=== PATIENT | male | born 1960 | race Caucasian/White ===

== ENCOUNTER → 2019-10-31 12:09 | Outpatient (CLI) | payer BC, SELFPAY ==
--- NOTE | 2019-10-31 12:13 | CA_ITS ---
APPROVED REPORT EXAM: Comprehensive 2D, Doppler, and color-flow Echocardiogram Porcelain Finisher: Joyce Snider RDCS Ht: 6 ft 1 in Wt: 335lbs BSA: 2.68 BP: 133/72 mmHg Indications: Diabetes, Obesity, Hypertension/HDD 2D Dimensions LVOT 2.39 cm (M/F) 1.5-2.5 M-Mode Dimensions RVDd 3.53 cm (0.9-2.6) LVDd 5.05 cm (3.5-5.7) LVDs 3.85 cm (3.5-5.7) IVSd 1.57 cm (0.6-1.1) PWd 0.85 cm (0.6-1.1) EF (Teich) 47.20% FS 23.80% EDV (Teich) 121.00 mL ESV (Teich) 63.90 mL LV Diastology E/A Ratio 1.07 Mitral Valve MV A Velocity 54.00 (40-130 cm/s) Left Ventricle Left atrium is mildly enlarged, left ventricle is normal size, mild concentric left ventricular hypertrophy, visually estimated ejection fraction 55% with no regional wall motion abnormality, grade 1 diastolic dysfunction seen without tissue Doppler evidence of raise left atrial pressure. Right Ventricle Right atrium and right ventricle are mildly enlarged with normal contractility. Aortic Valve Aortic valve is minimally thickened and fibrosed, there is no aortic stenosis or aortic insufficiency. Mitral Valve Mitral valve is grossly normal, there is mild mitral regurgitation. Tricuspid Valve Tricuspid valve is grossly normal, there is mild tricuspid regurgitation, tricuspid regurgitation jet velocity is inadequate for calculation of the right ventricular systolic pressure. Pulmonic Valve Pulmonic valve is poorly visualized. Great Vessels Aortic root is normal size. Pericardium No significant pericardial effusion noted. Conclusion 1. Mild biatrial enlargement, normal left ventricular size, mild concentric left ventricular hypertrophy, visually estimated ejection fraction 55% with no regional wall motion abnormality, grade 1 diastolic dysfunction seen without tissue Doppler evidence of raise left atrial pressure. 2. Mildly enlarged right ventricle with normal contractility. 3. Mild mitral and tricuspid regurgitation. 4. No significant pericardial effusion noted Electronically signed by : Richi Orlando, 10/31/2019 18:19:23
--- NOTE | 2019-10-31 12:32 | XR_ITS ---
PROCEDURE: XR CHEST 2V CLINICAL HISTORY: dyspnea COMPARISON: No exams were available for comparison FINDINGS: The cardiomediastinal silhouette and pulmonary vascularity are within normal limits. There are well expanded. There are subtle interstitial reticular nodular opacities in the perihilar regions and lower lobes bilaterally. There is no definite confluent pneumonic infiltrate. There is no pleural fluid. The bony thorax is normal. IMPRESSION: Minimal or early interstitial fibrotic changes primarily involving the lower lobes, doubt acute chest pathology Dictated Dr. Dave Huerta MD 10/31/2019 12:52 Dr. Dave Quiroz MD in [place] 10/31/2019 12:52
== END ==
PROVIDERS: PCP Family Medicine; Visit Provider Internal Medicine
DX: E11.9 Type 2 diabetes mellitus without complications (principal); R06.02 Shortness of breath; R60.0 Localized edema; E66.01 Morbid (severe) obesity due to excess calories; F17.200 Nicotine dependence, unspecified, uncomplicated; G47.33 Obstructive sleep apnea (adult) (pediatric); I10 Essential (primary) hypertension; I25.10 Atherosclerotic heart disease of native coronary artery without angina pectoris; N52.9 Male erectile dysfunction, unspecified; Z99.89 Dependence on other enabling machines and devices; Z79.84 Long term (current) use of oral hypoglycemic drugs
CPT/HCPCS: 71046; 93306

== ENCOUNTER 2023-04-14 11:58 | Outpatient (CLI) | payer MEDICARE, SELFPAY ==
[2023-04-14 12:42] LABS: Basophils % 0.9 % (0.1-2.0); Eosinophils # 0.2 K/mm3 (0.0-0.4); Eosinophils % 4.1 % (0.1-12.0); Hematocrit 44.2 % (42.0-52.0); Hemoglobin 14.8 g/dL (14.1-18.0); Lymphocytes # 1.2 K/mm3 (0.7-4.5); Lymphocytes % 27.1 % (10-50); Mean Corpuscular HGB Conc 33.6 g/dL (31.8-35.4); Mean Corpuscular Hemoglobin 34.8 pg (27.0-31.2); Mean Corpuscular Volume 103.5 fl (80-94); Mean Platelet Volume 8.4 fl (7.4-10.4); Monocytes # 0.3 K/mm3 (0.1-1.0); Monocytes % 5.9 % (1.7-9.3); Neutrophils # 2.8 K/mm3 (1.8-7.8); Neutrophils % 61.9 % (37.0-80.0); Platelet Count 65 K/mm3 (142-424); Red Blood Count 4.27 M/mm3 (4.60-6.20); Red Cell Distribution Width 14.4 % (11.5-17.5); White Blood Count 4.5 K/mm3 (4.8-10.8)
[2023-04-14 12:58] LABS: Chloride 106 mmol/L (98-107); Potassium 3.9 mmoL/L (3.5-5.1); Sodium 137 mmol/L (136-145)
[2023-04-14 13:00] LABS: Bilirubin,Unconjugated 0.5 mg/dL (0.0-1.1); Blood Urea Nitrogen 13 mg/dl (9-20); Estimated Glomerular Filt Rate 86 ml/min (>60); GFR (African American) 104 ML/MIN (>60)
[2023-04-14 13:01] LABS: Alanine Aminotransferase 31 U/L (12-78); Albumin Level 3.4 g/dl (3.5-5.0); Alkaline Phosphatase 111 U/L (38-126); Anion Gap 5.9 mEq/L (5-15); Aspartate Amino Transferase 49 U/L (17-59); Bilirubin,Direct 0.6 mg/dl (0.0-0.4); Bilirubin,Indirect 0.5 mg/dL (0.0-0.9); Bilirubin,Total 1.1 mg/dl (0.2-1.3); Calcium 8.5 mg/dl (8.4-10.2); Carbon Dioxide 29 mmol/L (22.0-30.0); Cholesterol 199 mg/dl (140-200); Glucose 127 mg/dl (74-100); Magnesium 1.8 mg/dl (1.6-2.3); Total Protein,Serum 7.1 g/dl (6.3-8.2); Triglycerides 168 mg/dl (30-150); VLDL Cholesterol 34 mg/dL (0-40)
[2023-04-14 13:02] LABS: Chol/HDL Ratio 4.1 (1-3.5); HDL Cholesterol 49 mg/dl (40-60)
[2023-04-14 13:13] LABS: Direct LDL Cholesterol 103.86 mg/dL (100-129)
[2023-04-14 13:18] LABS: Free T4 (Free Thyroxine) 1.22 ng/dl (0.78-2.19)
[2023-04-14 13:31] LABS: Thyroid Stimulating Hormone 1.53 uIU/mL (0.465-4.68)
== END 2023-04-14 23:59 ==
LOC: RT 11:59
PROVIDERS: Visit Provider Internal Medicine
DX: E11.9 Type 2 diabetes mellitus without complications (principal); E66.01 Morbid (severe) obesity due to excess calories; E78.5 Hyperlipidemia, unspecified; F17.200 Nicotine dependence, unspecified, uncomplicated; I10 Essential (primary) hypertension; I25.10 Atherosclerotic heart disease of native coronary artery without angina pectoris; I63.9 Cerebral infarction, unspecified; R60.9 Edema, unspecified; Z68.41 Body mass index [BMI] 40.0-44.9, adult; Z79.84 Long term (current) use of oral hypoglycemic drugs; R06.09 Other forms of dyspnea; R94.31 Abnormal electrocardiogram [ECG] [EKG]
CPT/HCPCS: 36415; 80048; 80061; 80076; 83735; 84439; 84443; 85025; 93270

== ENCOUNTER 2023-04-16 09:25 | Outpatient (CLI) | payer MEDICARE, SELFPAY ==
--- NOTE | 2023-04-16 09:26 | CA_ITS ---
FINAL REPORT TECHNIQUE: Color Doppler, duplex Doppler and lutz scale sonography of the bilateral neck arterial vasculature was performed. Velocities were measured in the carotid arteries. Stenosis evaluation based on the validated velocity criteria. CLINICAL HISTORY: cryptogenic stroke, visual disturbance COMPARISON: None FINDINGS: The peak systolic velocity of the right common carotid artery is 78 cm/s. The peak systolic velocity of the right internal carotid artery is 112 cm/s and end diastolic velocity 36 cm/s. The ICA/CCA ratio is 1.8. A mild to moderate amount of plaque is present. The right external carotid artery is patent. The right vertebral artery is patent with antegrade flow. The peak systolic velocity of the left common carotid artery is 81 cm/s. The peak systolic velocity of the left internal carotid artery is 94 cm/s and end diastolic velocity 28 cm/s. The ICA/CCA ratio is 1.4. A mild to moderate amount of plaque is present. The left external carotid artery is patent.The left vertebral artery is patent with antegrade flow. IMPRESSION: Less than 50% bilateral carotid stenoses. Bilateral patent vertebral arteries with antegrade flow. If indicated, CTA or MRA could further evaluate. Reviewed, Interpreted and Dictated by Edgar Vazquez MD Transcribed by Tamara Reed Authenticated and . [facility]
--- NOTE | 2023-04-16 09:26 | CA_ITS ---
APPROVED REPORT EXAM: Comprehensive 2D, Doppler, and color-flow Echocardiogram Design Specialist: SENAIT Ambrose, RVS Ht: 6 ft 1 in Wt: 335lbs BSA: 2.68 BP: 147/68 mmHg Indications: cad,cvs,htn, hld, edema, sob, smoker, DM Echo Enhancing Agent Comments: TDS: LIMITED WINDOWS DUE TO PATIENT FACTORS 2D Dimensions Left Atrium 4.35 cm M: 3.0 - 4.0 LA Volume 92.50 mL LA Volume Index 34.426002 mL/m2 (M/F) 16-34 M-Mode Dimensions RVDd 3.30 cm (0.9-2.6) LA Diam 4.75 cm (1.9-4.0) LVDd 5.40 cm (3.5-5.7) LVDs 3.44 cm (3.5-5.7) IVSd 1.20 cm (0.6-1.1) PWd 1.16 cm (0.6-1.1) EF (Teich) 65.50% EPSs 0.72 cm FS 36.30% EDV (Teich) 141.30 mL TAPSE 3.75 (<1.7) ESV (Teich) 48.80 mL LV Diastology E Decel Time 287 (160-240 msec) E/A Ratio 0.94 MED A' 9.40 cm/s LAT A' 11.60 cm/s Aortic Valve TAITANA Index 1.12 cm2/m2 AoV Peak Perez. 122.0 (50-130 cm/s) AO Peak GR. 6.00 mmHg AO Mean GR. 3.00 (<5 mmHg) AO VTI 24.4 (18-25 cm) TATIANA (VTI) 3.07 (2.5-4.5 cm2) Mitral Valve MV A Velocity 74.0 (40-130 cm/s) E/A Ratio 0.94 Tricuspid Valve TR P. Velocity 150.00 cm/s RAP Estimate 10.00 mmHg RVSP 19.00 mmHg Left Ventricle The left ventricle is normal size. The left ventricular systolic function is normal. The left ventricular ejection fraction is within the normal range. There is normal left ventricular wall thickness. There is normal LV segmental wall motion. The left ventricular diastolic function is normal. LVEF is 55%. Right Ventricle The right ventricle is normal size. The right ventricular systolic function is normal. Atria The left atrium size is normal. The right atrium size is normal. The interatrial septum is not well visualized. Aortic Valve The aortic valve opens well. There is no aortic valvular stenosis. No aortic regurgitation is present. Mitral Valve The mitral valve is normal in structure. No evidence of mitral valve stenosis. Trace mitral valve regurgitation noted. Tricuspid Valve The tricuspid valve leaflets are thin and pliable. Trace tricuspid regurgitation. There is insufficient TR jet to estimate RVSP. Pulmonic Valve The pulmonary valve is normal in structure. Trace pulmonic regurgitation. Great Vessels The aortic root is normal in size. The ascending aorta is not well visualized. The IVC is not well visualized. Pericardium There is no pericardial effusion. Other Information Study Quality: Technically Difficult Conclusion Technically difficult study due to poor accoustic windows. Normal biventricular systolic function. No significant valvular stenosis or regurgitation. Electronically signed by : Deborah Ramos MD 04/20/2023 17:37:40
== END 2023-04-16 23:59 ==
PROVIDERS: Visit Provider Internal Medicine
DX: E11.9 Type 2 diabetes mellitus without complications (principal); E66.01 Morbid (severe) obesity due to excess calories; E78.5 Hyperlipidemia, unspecified; F17.200 Nicotine dependence, unspecified, uncomplicated; I10 Essential (primary) hypertension; I25.10 Atherosclerotic heart disease of native coronary artery without angina pectoris; R60.9 Edema, unspecified; I63.89 Other cerebral infarction; Z79.84 Long term (current) use of oral hypoglycemic drugs; Z68.41 Body mass index [BMI] 40.0-44.9, adult
CPT/HCPCS: 93306; 93880

== ENCOUNTER 2023-05-03 12:16 | Outpatient (CLI) | payer MEDICARE, SELFPAY ==
[2023-05-03 14:21] LABS: Vitamin B12 437 pg/mL (239-931)
[2023-05-03 14:37] LABS: Folate 6.84 ng/mL
== END 2023-05-03 23:59 ==
LOC: LAB 12:18
PROVIDERS: PCP Family Medicine; Visit Provider Internal Medicine
DX: D64.9 Anemia, unspecified (principal)
CPT/HCPCS: 36415; 82607; 82746

== ENCOUNTER 2023-06-15 10:26 | Outpatient (CLI) | payer MEDICARE, SELFPAY ==
[2023-06-15 10:30] VITALS: BP 117/50; PULSE 72; RESP 16; TEMP 35.9
[2023-06-15] MEDS: INCLISIRAN SODIUM 284 MG/1.5 ML SYRINGE SQ (10:40)
== END 2023-06-15 10:55 | disposition home or self-care (01) ==
PROVIDERS: PCP Family Medicine; Visit Provider Internal Medicine
DX: E78.5 Hyperlipidemia, unspecified (principal)
CPT/HCPCS: 96372; J1306

== ENCOUNTER 2023-10-15 09:53 | Outpatient (CLI) | payer MEDICARE, SELFPAY ==
[2023-10-15 10:05] VITALS: BP 123/67; PULSE 72; RESP 18; TEMP 36.8; O2SAT 96
[2023-10-15] MEDS: INCLISIRAN SODIUM 284 MG/1.5 ML SYRINGE SQ (10:05)
== END 2023-10-15 10:27 | disposition home or self-care (01) ==
LOC: INF 09:54
PROVIDERS: PCP Nurse Practitioner Family; Visit Provider Internal Medicine
DX: E78.5 Hyperlipidemia, unspecified (principal)
CPT/HCPCS: 96372; J1306

== ENCOUNTER 2024-04-24 12:28 | Outpatient (CLI) | payer MEDICARE, SELFPAY ==
--- NOTE | 2024-04-24 12:33 | XR_ITS ---
FINAL REPORT TECHNIQUE: Chest PA & Lateral CLINICAL HISTORY: Shortness of breath/atypical angina COMPARISON: None FINDINGS: 2 views of the chest were performed. The heart size is normal. The mediastinum is within normal limits. There is no acute cardiopulmonary process. Mild chronic changes are seen in both lungs. There are no pleural effusions. There is no pneumothorax. The bony thorax appears intact. IMPRESSION: Mild chronic changes without acute cardiopulmonary process. Reviewed, Interpreted and Dictated by Edgar Vazquez MD Transcribed by Tamara Reed Authenticated and . [facility]
[2024-04-24 12:58] LABS: Basophils # 0.1 K/mm3 (0-0.2); Basophils % 1.2 % (0.1-2.0); Eosinophils # 0.3 K/mm3 (0.0-0.4); Eosinophils % 2.8 % (0.1-12.0); Hematocrit 42.3 % (42.0-52.0); Lymphocytes % 20.9 % (10-50); Mean Corpuscular HGB Conc 35.5 g/dL (31.8-35.4); Mean Corpuscular Hemoglobin 35.3 pg (27.0-31.2); Mean Corpuscular Volume 99.5 fl (80-94); Monocytes % 10.4 % (1.7-9.3); Neutrophils # 6.1 K/mm3 (1.8-7.8); Neutrophils % 64.3 % (37.0-80.0); Platelet Count 103 K/mm3 (142-424); Red Blood Count 4.25 M/mm3 (4.60-6.20); Red Cell Distribution Width 13.4 % (11.5-17.5); White Blood Count 9.5 K/mm3 (4.8-10.8)
[2024-04-24 13:32] LABS: ABG HCO3 26.6 mmhg (22.0-26.0); ABG Oxygen Saturation 89 % (90-100); ABG PCO2 37.5 mmhg (35.0-45.0); ABG PH 7.46 mmol/L (7.35-7.45); ABG PO2 51.2 mmhg (80-100); ABG TCO2 27.8 mmhg (23-27)
[2024-04-24 13:33] LABS: Allen's Test Acceptable; Oxygen 21% %; Source Left Radial
[2024-04-24 13:41] LABS: Free T4 (Free Thyroxine) 1.66 ng/dl (0.78-2.19)
[2024-04-24 13:43] LABS: Alanine Aminotransferase 33 U/L (12-78); Albumin Level 3.8 g/dl (3.5-5.0); Alkaline Phosphatase 104 U/L (38-126); Anion Gap 13.8 mEq/L (5-15); Aspartate Amino Transferase 53 U/L (17-59); Bilirubin,Direct 0.4 mg/dl (0.0-0.4); Bilirubin,Indirect 0.9 mg/dL (0.0-0.9); Bilirubin,Total 1.3 mg/dl (0.2-1.3); Bilirubin,Unconjugated 0.9 mg/dL (0.0-1.1); Blood Urea Nitrogen 32 mg/dl (9-20); Calcium 9.4 mg/dl (8.4-10.2); Carbon Dioxide 28 mmol/L (22.0-30.0); Chloride 98 mmol/L (98-107); Chol/HDL Ratio 3.8 (1-3.5); Cholesterol 165 mg/dl (140-200); Estimated Glomerular Filt Rate 41 ml/min (>60); GFR (African American) 50 ML/MIN (>60); Glucose 140 mg/dl (74-100); HDL Cholesterol 43 mg/dl (40-60); Magnesium 1.4 mg/dl (1.6-2.3); Potassium 3.8 mmoL/L (3.5-5.1); Sodium 136 mmol/L (136-145); Total Protein,Serum 7.1 g/dl (6.3-8.2); Triglycerides 292 mg/dl (30-150); VLDL Cholesterol 58 mg/dL (0-40)
[2024-04-24 13:52] LABS: NT Pro Brain Natriuretic Pep. 591 pg/mL (0-125)
[2024-04-24 13:53] LABS: Direct LDL Cholesterol 75.68 mg/dL (100-129)
[2024-04-24 14:13] LABS: Thyroid Stimulating Hormone 3.02 uIU/mL (0.465-4.68)
== END 2024-04-24 23:59 | disposition home or self-care (01) ==
PROVIDERS: PCP Nurse Practitioner Family; Visit Provider Internal Medicine
DX: R06.00 Dyspnea, unspecified (principal); E78.49 Other hyperlipidemia; I63.9 Cerebral infarction, unspecified; E66.01 Morbid (severe) obesity due to excess calories; E11.9 Type 2 diabetes mellitus without complications; Z79.4 Long term (current) use of insulin; F17.200 Nicotine dependence, unspecified, uncomplicated; I25.10 Atherosclerotic heart disease of native coronary artery without angina pectoris; R60.0 Localized edema; R06.83 Snoring; G47.33 Obstructive sleep apnea (adult) (pediatric); I10 Essential (primary) hypertension; I27.21 Secondary pulmonary arterial hypertension
CPT/HCPCS: 36415; 71046; 80048; 80061; 80076; 82803; 83735; 83880; 84439; 84443; 85025

== ENCOUNTER 2024-05-01 11:37 | Outpatient (CLI) | payer MEDICARE, SELFPAY ==
[2024-05-01 12:22] LABS: Chloride 104 mmol/L (98-107)
[2024-05-01 12:23] LABS: Potassium 4.2 mmoL/L (3.5-5.1); Sodium 138 mmol/L (136-145)
[2024-05-01 12:26] LABS: Anion Gap 9.2 mEq/L (5-15); Blood Urea Nitrogen 18 mg/dl (9-20); Calcium 8.7 mg/dl (8.4-10.2); Carbon Dioxide 29 mmol/L (22.0-30.0); Estimated Glomerular Filt Rate 76 ml/min (>60); GFR (African American) 92 ML/MIN (>60); Glucose 229 mg/dl (74-100)
== END 2024-05-01 23:59 | disposition home or self-care (01) ==
LOC: LAB 11:38
PROVIDERS: PCP Nurse Practitioner Family; Visit Provider Nurse Practitioner Family
DX: J44.9 Chronic obstructive pulmonary disease, unspecified (principal); I27.21 Secondary pulmonary arterial hypertension; G47.33 Obstructive sleep apnea (adult) (pediatric); E78.49 Other hyperlipidemia; E11.9 Type 2 diabetes mellitus without complications; Z79.4 Long term (current) use of insulin; F17.200 Nicotine dependence, unspecified, uncomplicated; I25.10 Atherosclerotic heart disease of native coronary artery without angina pectoris
CPT/HCPCS: 36415; 80048

== ENCOUNTER → 2024-05-17 07:33 | Outpatient (CLI) | payer MEDICARE, SELFPAY | LOC: SL 07:34 | PROVIDERS: PCP Internal Medicine; Visit Provider Internal Medicine | DX: G47.33 Obstructive sleep apnea (adult) (pediatric) (principal); R06.83 Snoring; R06.00 Dyspnea, unspecified; E78.49 Other hyperlipidemia; I63.9 Cerebral infarction, unspecified; E66.01 Morbid (severe) obesity due to excess calories; E11.9 Type 2 diabetes mellitus without complications; Z79.4 Long term (current) use of insulin; F17.200 Nicotine dependence, unspecified, uncomplicated; I25.10 Atherosclerotic heart disease of native coronary artery without angina pectoris; R60.0 Localized edema | CPT/HCPCS: G0399 ==

== ENCOUNTER 2024-08-15 14:16 | Outpatient (CLI) | payer MEDICARE, SELFPAY ==
--- OUTSIDE RECORDS SUMMARY | 2024-08-15 14:19 | XMS_ITS | Data Portability ---
Author Organization [facility] & [place], [facility] and [facility] Ag[facility] Address [facility] [place] [address] Assessment No assessment recorded. Plan of Treatment Reminders Order Date Submit Date Provider Last Modified By Organization Details Last Modified Time Details Appointments None record ed. Lab None record ed. Referral None record ed. Procedures None record ed. Surgeries None record ed. Imaging None record ed. Medication Orders None record ed. Patient TargetsNo targets recorded. Patient InstructionsNo instructions recorded. Reason for Referral None Reported. Problems Name Problem SNOMED Code Status Onset Date Resolution Date Notes Provider Name and Address Organization Details Recorded Time Secondary thrombocytopen ia 175745966 Active 2021 Hugh Melo MD [address] [place] [address],[address] [place] [address], [phone], [place] - [facility] - [place] & [place] 2 10:27:54 Macrocytosis - no anemia 052362004 Active 2021 Hugh Melo MD [address] [place] [address],[address], [place], [phone], [place] [facility] - [place] & [place] 2 10:28:06 Cirrhosis of liver 75344721 Active 2021 Hugh Melo MD [address] [place] [address],[address], [place], [phone], [place] - [place] & [place] 2 10:28:13 Splenomegaly 81732561 Active 2021 Hugh Melo MD [address] [place] [address],[address], [place], [phone], [place] - [facility] - [place] & [place] 2 10:28:21 Problem Notes None recorded. Procedures Surgical History Date Name Laterality Status Provider Name and Address Organization Details Recorded Time cholecystectomy completed Lisa PORTER [facility] & [place] 01/09/2022 10:18:39 total replacement of right hip joint completed Lisa NICHOLAS [facility] & [place] 01/09/2022 10:19:10 Imaging Results None recorded. Procedure Notes None recorded. Medical Equipment None Reported. Allergies Allergen ID Allergen Name Allergen Category Reaction Reaction Severity Criticality Documentation Date Start Date Code Code System Note Provider Name and Address Organization Details Recorded Time 77843 codeine medicatio n Not available Not available Not available 01/09/2022 2670 RxNorm Lisa lam, [place] [facility] & [place] 10:17:37 Medications Name Sig Start Date Stop Date Status Note LastModified by Organization Details LastModified Time fluticasone 250 mcg-salmeter ol 50 mcg/dose blistr powdr for inhalation active Not Available Not Available N ot Available carvedilol 25 mg tablet 1 tablet PO daily active Not Available Not Available No t Available torsemide 20 mg tablet 1 tablet PO daily active Not Available Not Available No t Available fluconazole 150 mg tablet 01/09 completed Not Available Not Available Not Available valsartan 80 mg tablet 1 tablet PO daily active Not Available Not Available No t Available spironolacto ne 25 mg tablet active Not Available Not Available Not Available tamsulosin 0.4 mg capsule 1 tablet PO daily active Not Available Not Available No t Available gabapentin 800 mg tablet 1 tablet PO 4 times daily active Not Available Not Available No t Available metformin 1,000 mg tablet 1 tablet PO BID active Not Available Not Available No t Available omeprazole 20 mg capsule,delmy yed release 01/09 completed Not Available Not Available Not Available hydrochlorot hiazide 25 mg tablet 1 tablet PO daily active Not Available Not Available No t Available lorazepam 1 mg tablet 1 tablet PO daily active Not Available Not Available No t Available albuterol sulfate HFA 90 mcg/actuatio n aerosol inhaler active Not Available Not Available Not Available spironolacto ne 50 mg tablet active Not Available Not Available Not Available Vitamin D 2,000 unit capsule Take 1 capsule every day by oral route. active Not Available Not Available No t Available potassium chloride ER 20 mEq tablet,exten ded release 1 tablet PO daily PRN active Not Available Not Available No t Available aspirin 81 mg capsule Take 1 capsule every day by oral route. active Not Available Not Available No t Available Vitals Date Recorded Body height Body mass index (BMI) Body weight Body temperature Oxygen saturation Oxygen saturation in Arterial blood by Pulse oximetry Heart rate Respiratory rate Systolic And Diastolic Provider Name and Address Organization Details Last Updated DateTime 2 182.88 cm 44.9 kg/m2 737012. 51 g 97.9 [degF] 94 % 94 % 74 /min 18 /min 126/58 mm[Hg] Lisa PORTER [facility] & [place] 10:17:02 Social History Question Answer Notes LastModified by Organizat ion Details LastModified Time Tobacco Smoking Status Current Every Day Smoker Lisa Martinez genaro, [facility] & [place] 01/09/2022 10:19:28 How Much Tobacco Do You Smoke? 2 PPD kcornette Information not available 01/09/2022 Sex: Unknown Functional Status None recorded. Mental Status None recorded. Family History Relationship Description Onset Age of this Age Resolved Age Notes LastModified by Organization Details LastModified Time Mother Primary malignant neoplasm of colon kcornette Not available 2021 10:18:00 Brother Heart valve replacement [email or web address] Not available 12/21 10:18:15 Medical History No medical history recorded. Past Encounters Encounter ID Performer Location Encounter Start Date Encounter Closed Date Diagnosis/Indication Diagnosis SNOMED-CT Code Diagnosis ICD10 Code Diagnosis Note [id number] MD [facility] [address] [place] [address] 01/09/2022 09:43:05 01/09/2022 10:43:57 Secondary thrombocytopenia 078201930 D69.59 Most likely secondary to the patient's known history of cirrhosis and splenomega ly. Review of recent blood work from 12/16/2021 shows no significan t change compared to blood work from 08/17/2019 . Therefore has essentiall y shown stable cytopenias over the last 2 years. Discussed with the patient that I found this to be reassuring . Suggests that he has not had further progressio n of his liver disease over that period of time. Also helps to confirm that it is unlikely he has any additional underlying hematologi c abnormalit ies that could be contributi ng to the cytopenias as it would have been suspected that these would have progressed over a 2 year period. Given the overall stability and lack of symptoms patient recommende d for follow-up with me as needed. Recommend continued surveillan ce of his blood counts with his PCP on at least an annual basis. If noted to have progressiv e change in the future I would be happy to follow back up with the patient. Thank you for allowing me to participat e in the care of Mr. Shultz. Should you have any further questions or concerns please feel free to give me a call at . I personally spent 25 minutes in patient care on this date reviewing records, obtaining interim history, performing a physical exam, counseling the patient, and documentin g the clinical informatio n in the electronic health record. Macrocytos is - no anemia [id number] D75.89 I suspect this is related to his history of cirrhosis. No significan t changes noted over the last 2 years. Cirrhosis of liver K74.60 Splenomegaly 26139978 R1 6.1 Health Concerns Section Related Observation LastModified by Organization Detai ls LastModified Time None Recorded Concern Status LastModified by Organization Details LastModified Time None Recorded Advance Directives Directive None Recorded Payers Insurance Date Sequence Insurance Name Policy Number Policy Wild Covered Member ID Wild Member ID Guarantor Name 10/09/2023 1 [place]/ ADVANTAGE - HMO) [id number] Uday Shultz [id number] Uday Shultz 08/28/2019 1 [place] [facility] Uday Shultz [id number] Uday Shultz 01/09/2022 1 [place] [id number] Uday Shultz [id number] Uday Shultz 08/28/2019 2 [place] Uday Shultz [id number] Uday Shultz 08/28/2019 2 [place] Uday Shultz [id number] Uday Shultz Notes Date Note Type Note Provider Name and Address Organization Details Recorded Time 01/09/2022 text/html CC: Dr. Theresa Jamil had the pleasure of seeing Mr. Uday Shultz at the [facility] on 01/09/2022.Mr. Shultz is a 59 y/o man referred to me for evaluation of macrocytosis and thrombocytopenia. He was previously evaluated for the same back in 2019. The patient is known to have a diagnosis of cirrhosis with moderate splenomegaly. This was diagnosed in 2016 during a cholecystectomy. His cirrhosis is felt to be secondary to REYNOLDS. He reports that he does not drink alcohol at all. Review of prior imaging shows that he had an abdominal CT on 02/07/2016 that showed splenomegaly measuring up to 20 cm. He also had an liver ultrasound on 10/12/2016 which confirmed evidence of cirrhosis. Review of CBC from 08/17/2019 shows hemoglobin 15.1 with an MCV 100. WBC was normal. Platelet count was 87. Differential was benign. CMP showed a slightly elevated AST of 44 but was otherwise unremarkable. Folate and B12 levels were reportedly normal. more recently CBC on 12/16/2021 showed hemoglobin 14.6 with an MCV of 101. Platelet count was 85. White blood cell count remained normal. Differential remained unremarkable. The patient now returns for follow-up. Hugh Melo MD [address] [facility],[address], [place], [address], [place] - [place] - [place] & [place] 01/09/2022 13:51:58
--- NOTE | 2024-08-15 14:30 | CT_ITS ---
FINAL REPORT TECHNIQUE: Axial CT images of the chest were obtained without contrast. Low-dose protocol was utilized. This study was performed with techniques to keep radiation doses as low as reasonably achievable (ALARA). Individualized dose reduction techniques using automated exposure control or adjustment of mA and/or kV according to the patient's size were employed. CLINICAL HISTORY: Lung cancer screening Current smoker 1.5 ppd x 50 years COMPARISON: None FINDINGS: CT CHEST WITHOUT, LOW DOSE SCREENING CTDl vol(mGy): 2.90 DLP (mGy-cm): 108.12 There is no axillary adenopathy. There is no hilar adenopathy. There is no mediastinal mass or adenopathy. The heart size is normal. There are mild coronary artery calcifications. There is no pericardial or pleural effusion. Lung window images demonstrate a subtle density along the margin of the minor fissure. This may be related to a small fissural lymph node and is best seen on coronal image 39 of series 6001. Limited images of the upper abdomen are unremarkable. IMPRESSION: Lung RADS category 2. Recommend 12 month follow-up low-dose chest CT per Fleischner criteria. Reviewed, Interpreted and Dictated by Edgar Vazquez MD Transcribed by Devorah Estrada Authenticated and [facility]
[2024-08-15 15:30] VITALS: PULSE 55; PULSE 60
[2024-08-15] MEDS: ALBUTEROL 0.083% 2.5 MG/3 ML NEB IH (15:30)
--- NOTE | 2024-08-15 15:50 | PC.NURSE ---
Pt refused 6MWT stated he has neuropathy in his feet and would not be able do the test.
== END 2024-08-15 23:59 | disposition home or self-care (01) ==
LOC: RAD 14:17
PROVIDERS: PCP Nurse Practitioner Family; Visit Provider Internal Medicine Pulmonary Disease
DX: R91.8 Other nonspecific abnormal finding of lung field (principal); J44.9 Chronic obstructive pulmonary disease, unspecified; F17.210 Nicotine dependence, cigarettes, uncomplicated; Z12.2 Encounter for screening for malignant neoplasm of respiratory organs
CPT/HCPCS: 71271; 94060; 94640; 94726; 94729

== ENCOUNTER 2025-01-04 12:20 | Observation (INO) | payer MEDICARE, SELFPAY ==
[2025-01-04] VITALS (17 sets, daily range): BP systolic 93–127; BP diastolic 45–70; PULSE 50–77; RESP 15–20; TEMP 36.6–37.1; O2SAT 92–95; BMI 45.0
--- NOTE | 2025-01-04 12:50 | IR_ITS ---
APPROVED REPORT Patient Location: Inpatient Marine Driller: NAEL Rosa RT (R) PROCEDURES Left heart catheterization Left ventriculogram Selective coronary angiogram INDICATION Unstable angina, New onset congestive heart failure Informed consent was obtained prior to the procedure. COMPLICATIONS None Estimated Blood Loss: Less than 10 mls TECHNIQUE One percent lidocaine used to anesthetize the right anterior aspect of the wrist. The right radial artery was accessed via the Seldinger technique. A 6 Occitan sheath was placed in the right radial artery. 2.5 mg of Verapamil, 800 mcg of nitroglycerin, 1mg Lidocaine and 5000 U Heparin were given through the arterial sheath. The JL3 catheter was also used to perform left heart catheterization, left ventriculogram and selective coronary angiogram. At the end of the procedure the sheath was removed good hemostasis was achieved using Traclet band, patient was transferred to the postop holding area in stable condition. ANGIOGRAPHIC RESULTS The left main artery Has an ostial and distal 30 to 40% stenosis The left anterior descending artery Has diffuse proximal and mid vessel 40% stenoses which involved with diagonal artery The circumflex artery Is nondominant but gives rise to a large first obtuse marginal artery which has a proximal 50% stenosis. 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 GDMT for systolic heart failure 2. Patient is an extremely heavy smoker I would like for Dr. Mix to see the patient during this admission for COPD 3. Increase diuretics 4. Patient will be referred to electrophysiology for consideration of PVC ablation 5. Patient will need cardiac MRI prior to EP referral 6. Patient needs to be evaluated for Cordella candidacy Electronically signed by : Gus Jorge MD 01/04/2025 15:25:22
--- NOTE | 2025-01-04 13:34 | EXP.CARD.PN ---
Subjective Subjective Date: 01/04/25 Time: 13:34 Principal diagnosis: unstable angina Interval history: Pt having CP and pressure. Pt c/o shortness of breath, this has gotten worse, he is sleeping in a recliner now he cannot sleep laying flat. Worsening symptoms of HFpEF. He is diabetic and this could be angina equivalent as well. Pt c/o dizziness/lightheadedness Pt c/o swelling in legs, feet, ankles Pt denies numbness/tingling Pt c/o fatigue Exam Data for Last 24 hours I & O for Last 24 hours: Intake & Output 01/01/25 01/02/25 01/03/25 01/04/25 23:59 23:59 23:59 23:59 Weight 332 lb 2 oz Constitutional Constitutional: no acute distress and average body habitus *Routine HEENT Exam Head: Present normocephalic and atraumatic ENT: Present mucous membranes moist *Routine Neck Exam Neck: Present supple, full ROM and normal carotid upstroke; Absent JVD, carotid bruit or lymphadenopathy *Routine Respiratory Exam Respiratory: Present CTA bilaterally, normal respiratory effort, able to speak in complete sentences and symmetric chest movement *Routine Cardiovascular Exam Cardiovascular: Present RRR, Normal S1 and Normal S2; Absent murmur or gallop *Routine Abdominal Exam Abdominal: Present soft and normoactive bowel sounds; Absent tenderness, distended or organomegaly *Routine Extremities Exam Extremities: Present edema, full ROM, pulses intact and normal capillary refill; Absent cyanosis or clubbing *Routine Skin Exam Skin: Present intact and warm; Absent erythema *Routine Neurological Exam Neurological: Present alert, oriented X3 and CN II-XII intact; Absent sensory deficit or motor deficit Routine Psychiatric Exam Psychiatric: Present normal affect Progress Note: A&P Assessment and plan (1) Crescendo angina: Status: Acute (2) (HFpEF) heart failure with preserved ejection fraction: Status: Acute (3) Tobacco abuse counseling: Status: Acute (4) HTN (hypertension): Status: Chronic (5) SOB (shortness of breath): Status: Chronic (6) CAD (coronary artery disease): Status: Chronic (7) Diabetes mellitus: Status: Chronic (8) Morbidly obese: Status: Chronic (9) HLD (hyperlipidemia): Status: Acute (10) ANANTH (obstructive sleep apnea): Status: Suspected (11) COPD (chronic obstructive pulmonary disease): Status: Acute Assessment and Plan Assessment and Plan for All Diagnoses:: Plan: 1. The patient was admitted to the hospital for crescendo angina/unstable angina. Will plan to proceed with left cardiac catheterization today to evaluate his coronary artery disease due to unstable angina and known CAD. 2. The patient has been educated the risks and benefits of proceeding with left cardiac catheterization. The patient verbalized understanding and is agreeable to proceeding with the procedure. 3. The patient will be n.p.o. in preparation for left cardiac catheterization. 4. The patient is having acute on chronic exacerbation of HFpEF. He would benefit from diuresis. Will put him on Bumex 1 mg IV twice daily. 5. Continue spironolactone for diuresis. 6. His blood pressure is well-controlled. Continue valsartan and Coreg. Stop HCTZ as he is on IV diuretics. 7. His LDL goal is less than 55. Will get a lipid panel in the morning. 8. Tobacco cessation is highly advised and counseled. 9. Echo to evaluate his LV function due to shortness of breath and HFpEF. 9. Further recommendations will be made pending the patient's response to treatment and results of his left cardiac catheterization and echocardiogram today. Thank you for the opportunity to help participate in the care of this patient. All recommendations and orders are per Dr. Ramos.
--- NOTE | 2025-01-04 13:39 | CA_ITS ---
APPROVED REPORT EXAM: Comprehensive 2D, Doppler, and color-flow Echocardiogram Database Design Analyst: Renita Howard RVT Ht: 6 ft 0 in Wt: 332lbs BSA: 2.64 BP: 145/78 mmHg Indications: CHEST PAIN,SHORTNESS OF BREATH Echo Enhancing Agent Indication: Endocardial border delineation Agent(s) / Amount(s) Used: Definity 2 cc 2D Dimensions IVSd 1.31 cm M: 0.6-1.2 LVEF (Visual) 49.00 % PWd 1.31 cm M: 0.6 - 1.2 LVDd 4.58 cm M: 4.2 - 5.9 LVDs 3.45 cm M: 2.5 - 4.0 M-Mode Dimensions LA Diam 4.35 cm (1.9-4.0) LV Diastology E Decel Time 210 (160-240 msec) E/A Ratio 1.1 Aortic Valve TATIANA Index 1.65 cm2/m2 AoV Peak Perez. 82.0 (50-130 cm/s) AO Peak GR. 2.70 mmHg AO Mean GR. 1.70 (<5 mmHg) AO VTI 20.3 (18-25 cm) TATIANA (VTI) 4.47 (2.5-4.5 cm2) Mitral Valve MV E Max Perez. 77.0 (40-130 cm/s) MV A Velocity 71.0 (40-130 cm/s) E/A Ratio 1.09 MV PHT 62.0 ms Pulmonary Valve PV Peak Velocity 82.0 (50-150 cm/s) Left Ventricle The left ventricle is normal size. Left ventricular systolic function is mildly to moderately reduced. There is increased left ventricular wall thickness. There is mild to moderate global hypokinesis present. Regional wall motion cannot be well-evaluated due to technically difficult study. The left ventricular diastolic function is indeterminate. No left ventricle thrombus noted on this study. LVEF is 40% Right Ventricle The right ventricle is not well-visualized but grossly appears normal in size and function. Atria The left atrium is moderately dilated. The right atrium is not well-visualized. There is no color Doppler evidence of interatrial shunt. Aortic Valve The aortic valve is mildly thickened. There is no hemodynamically significant aortic valvular stenosis. Trace aortic regurgitation is present. Mitral Valve The mitral valve is normal in structure. No evidence of mitral valve stenosis. Trace mitral regurgitation is present. Tricuspid Valve The tricuspid valve leaflets are thin and pliable. Trace tricuspid regurgitation. There is insufficient TR jet to estimate RVSP. Pulmonic Valve The pulmonary valve is not well-visualized. Great Vessels The aortic root is not well-visualized. The IVC is not well-visualized. Pericardium There is no pericardial effusion. Other Information Study Quality: Technically Difficult Conclusion Technically difficult study. Mild to moderate reduction in LV systolic function (LVEF 40%). LA dilation. No significant valvular stenosis or regurgitation in the visualized valves. Electronically signed by : Deborah Ramos MD 01/05/2025 09:36:29
--- NOTE | 2025-01-04 13:43 | EXP.HP ---
History of Present Illness *Admission Date: 01/04/25 *Reason for visit:: Shortness of breath with exertion. Chest pressure *History of present illness: Mr. Shultz is a 64-year-old male who smokes 2 packs a day, has history of CAD, hypertension, COPD, sleep apnea, morbid obesity. Presented for outpatient visits with pulmonology and cardiology. On arrival to cardiology clinic, they were concerned that his dyspnea is an anginal equivalent. Requested direct admission for further workup of unstable angina/dyspnea with exertion. Planning for left heart cath. Patient denies nausea, vomiting, syncope. No known previous heart attacks. History complicated by diabetes. Takes metformin for his diet he had blood pressure well control on on valsartan, HCTZ. at bedside. Updated of plan [facility] Disclaimer: The information contained in this section may have been updated after the patient was seen, as this information can be updated by other users. Medical History (HFpEF) heart failure with preserved ejection fraction COPD (chronic obstructive pulmonary disease) ANANTH (obstructive sleep apnea) Morbidly obese Diabetes mellitus CAD (coronary artery disease) Tobacco abuse counseling Tobacco abuse Encounter for screening for malignant neoplasm of lung Dyspnea on exertion Smoking greater than 30 pack years Encounter for pre-operative cardiovascular clearance Anemia HLD (hyperlipidemia) Cryptogenic stroke Erectile dysfunction ANANTH on CPAP SOB (shortness of breath) HTN (hypertension) Family History Other Family history of hyperlipidemia Family history of hypertension Social History Smoking Status: Current every day smoker alcohol intake: never substance use type: denies use current occupational status: other Travel in the last 8 weeks?: Inside the [place] Have you lived/traveled outside [place] in past 30 days?: No Contact w/someone who lives/traveled outside [place] past 30 days?: No Exposure to someone with infectious disease in past 14 days?: No Do you have a fever (greater than 100.4 F or 38 C)?: No Have you tested positive for COVID-19?: No Exposed to someone with COVID-19 in past 14 days?: No Do you have a sore throat?: No Do you have a cough?: No Do you have any weakness?: No Are you experiencing any nausea/vomitting?: No Do you have any diarrhea?: No Are you experiencing any unusual bleeding?: No Do you have any muscle aches/pain?: No Do you have any abdominal pain?: No Are you experiencing loss of taste or smell?: No Other Medical History Have you received the Pneumonia Vaccine: No Review of Systems Review of Systems Review of systems (narrative): 14 point review of systems performed, pertinent positives and negatives as per HPI Meds Home Medications and Allergies Home Medications ?Medication ?Instructions ?Recorded ?Confirmed ?Type carvedilol 25 mg tablet (Coreg) 25 mg PO BID #60 tabs 09/20/18 01/04/25 Rx torsemide 20 mg tablet 20 mg PO DAILY 10/31/19 01/04/25 History allopurinol 100 mg tablet 100 mg PO DAILY 04/14/23 01/04/25 History metformin 1,000 mg tablet 1,000 mg PO DAILY 04/14/23 01/04/25 History spironolactone 25 mg tablet 12.5 mg PO DAILY 04/14/23 01/04/25 History valsartan 80 mg tablet 80 mg PO DAILY 04/14/23 01/04/25 History gabapentin 800 mg tablet 800 mg PO QID #120 tabs 05/03/23 01/04/25 Rx aspirin 81 mg tablet,delayed 81 mg PO DAILY #30 tabs 07/28/23 01/04/25 Rx release buspirone 5 mg tablet 5 mg PO BID 04/24/24 01/04/25 History rivaroxaban 20 mg tablet (Xarelto) 20 mg PO Q3D 04/24/24 01/04/25 History zolpidem 5 mg tablet 5 mg PO HSP PRN Sleep 04/24/24 01/04/25 History albuterol sulfate 90 mcg/actuation 2 inh inhalation QID PRN shortness 09/11/24 01/04/25 Rx aerosol inhaler (Ventolin HFA) of breath or wheezing 90 days #8.5 grams hydrochlorothiazide 12.5 mg tablet 12.5 mg PO DAILY 09/11/24 01/04/25 History budesonide-formoterol HFA 80 1 puff inhalation BID 01/04/25 01/04/25 History mcg-4.5 mcg/actuation aerosol inhaler New Prescriptions to Start Prescriptions: Allergies Allergy/AdvReac Type Severity Reaction Status Date / Time atorvastatin Allergy Intermediate Rash Verified 01/04/25 12:32 codeine AdvReac Rash Verified 01/04/25 11:12 Exam Data for Last 24 hours Vital signs and Labs for Last 24 Hours: Temp Pulse Resp BP Pulse Ox O2 Del Method 97.8 F 68 16 119/65 95 Room Air 01/04/25 13:00 01/04/25 13:00 01/04/25 13:00 01/04/25 13:00 01/04/25 13:00 01/04/25 13:00 I & O for Last 24 hours: Intake & Output 01/01/25 01/02/25 01/03/25 01/04/25 23:59 23:59 23:59 23:59 Weight 150.649 kg Constitutional Constitutional: mild distress, morbidly obese, chronically ill appearing and cooperative *Routine HEENT Exam Head: Present normocephalic Eye: Present EOMI and PERRL ENT: Present mucous membranes moist *Routine Neck Exam Neck: Present supple; Absent lymphadenopathy *Routine Respiratory Exam Respiratory: Present CTA bilaterally *Routine Cardiovascular Exam Cardiovascular: Present RRR *Routine Abdominal Exam Abdominal: Present soft and normoactive bowel sounds; Absent tenderness *Routine Rectal Exam Rectal:: deferred *Routine Genitalia Exam Genitalia:: deferred *Routine Extremities Exam Extremities: Present edema (Trace bilateral); Absent cyanosis or clubbing Comments: Left lower extremity tender to palpation, this is chronic and longstanding. Baseline sensation *Routine Skin Exam Skin: Present warm; Absent rash *Routine Neurological Exam Neurological: Present alert, oriented X3 and moving all extremities; Absent altered mental status Assessment and Plan *Assessment and plan (1) (HFpEF) heart failure with preserved ejection fraction: Status: Acute Qualifiers: Heart failure chronicity: acute on chronic Qualified Code(s): I50.33 - Acute on chronic diastolic (congestive) heart failure Category: Medical Code(s): I50.30 - Unspecified diastolic (congestive) heart failure (2) Crescendo angina: Status: Acute Category: Medical Code(s): I20.0 - Unstable angina (3) Tobacco abuse: Status: Acute Category: Medical Code(s): Z72.0 - Tobacco use (4) COPD (chronic obstructive pulmonary disease): Status: Acute Qualifiers: COPD type: unspecified COPD Qualified Code(s): J44.9 - Chronic obstructive pulmonary disease, unspecified Category: Medical Code(s): J44.9 - Chronic obstructive pulmonary disease, unspecified (5) Smoking greater than 30 pack years: Status: Acute Category: Social Hx Code(s): F17.210 - Nicotine dependence, cigarettes, uncomplicated (6) HLD (hyperlipidemia): Status: Acute Qualifiers: Hyperlipidemia type: other hyperlipidemia Qualified Code(s): E78.49 - Other hyperlipidemia Category: Medical Code(s): E78.5 - Hyperlipidemia, unspecified (7) Morbidly obese: Status: Chronic Category: Medical Code(s): E66.01 - Morbid (severe) obesity due to excess calories (8) Diabetes mellitus: Status: Chronic Qualifiers: Diabetes mellitus type: type 2 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 artery [place] vs. transplanted heart: [place] heart Associated angina: without angina Qualified Code(s): I25.10 - Atherosclerotic heart disease of [place] coronary artery without angina pectoris Category: Medical Code(s): I25.10 - Atherosclerotic heart disease of [place] coronary artery without angina pectoris (10) ANANTH on CPAP: Status: Chronic Category: Medical Code(s): G47.33 - Obstructive sleep apnea (adult) (pediatric) (11) HTN (hypertension): Status: Chronic Qualifiers: Hypertension type: essential hypertension Qualified Code(s): I10 - Essential (primary) hypertension Category: Medical Code(s): I10 - Essential (primary) hypertension Plan 64-year-old male who presented to cardiology clinic, having dyspnea with exertion. Concern for unstable angina/anginal equivalent. 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 Planning to take for left heart cath today. I decided to admit for further care. Problems addressed as follows: Crescendo angina/unstable angina CAD Hypertension HFpEF - Discussed case cardiology, plan for left heart cath to evaluate CAD and unstable angina - Echo obtained showing preserved EF. Findings consistent with HFpEF. Initiated on diuresis. Administering Bumex IV 1 mg twice daily - Continue spironolactone for diuresis. - Continue spironolactone 12-1/2 mg daily, irbesartan 75 mg daily, HCTZ 12-1/2 mg daily, Coreg 25 mg twice daily, aspirin 81 mg daily - LDL 109. Tobacco use disorder: Complicates all aspects of his care. High risk for worsening COPD and CAD. Counseled on cessation. Nicotine patch 21 mg daily as needed during admission Diabetes: A1c well-controlled at 6.2. Continue metformin at 1000 mg daily. Fingersticks ACHS. Kidney function stable, BUN 21, creatinine 1.3. Potassium 3.9. Repeat CBC, CMP, magnesium ordered for the morning Depression: Continue buspirone 5 mg twice daily Neuropathy: Continue gabapentin 800 mg 4 times a day Insomnia: Continue zolpidem 5 mg nightly as needed Morbid obesity complicates all aspects of his care. Encourage weight loss Full code Diabetic diet
[2025-01-04 14:05] LABS: Albumin Level 3.7 g/dl (3.5-5.0); Chloride 99 mmol/L (98-107); Sodium 135 mmol/L (136-145)
[2025-01-04 14:06] LABS: Potassium 3.9 mmoL/L (3.5-5.1)
[2025-01-04 14:08] LABS: Alanine Aminotransferase 30 U/L (12-78); Albumin/Globulin Ratio 0.9 (1.1-1.8); Alkaline Phosphatase 114 U/L (38-126); Anion Gap 9.9 mEq/L (5-15); Aspartate Amino Transferase 44 U/L (17-59); Bilirubin,Total 1.4 mg/dl (0.2-1.3); Blood Urea Nitrogen 21 mg/dl (9-20); Carbon Dioxide 30 mmol/L (22.0-30.0); Creatinine Clearance Estimated 64 mL/min (50-200); Creatinine,Serum 1.30 mg/dl (0.66-1.25); Estimated Glomerular Filt Rate 56 ml/min (>60); GFR (African American) 67 ML/MIN (>60); Globulin 3.9 g/dL (1.3-3.2); Total Protein,Serum 7.6 g/dl (6.3-8.2)
[2025-01-04 14:09] LABS: Calcium 9.2 mg/dl (8.4-10.2); Cholesterol 202 mg/dl (140-200); Glucose 122 mg/dl (74-100); HDL Cholesterol 55 mg/dl (40-60); Magnesium 1.7 mg/dl (1.6-2.3); Triglycerides 118 mg/dl (30-150)
[2025-01-04 14:20] LABS: Hematocrit 40.0 % (42.0-52.0); Hemoglobin 14.1 g/dL (14.1-18.0); Immature Granulocytes % 0.5 %; Mean Corpuscular HGB Conc 35.3 g/dL (31.8-35.4); Mean Corpuscular Hemoglobin 35.9 pg (27.0-31.2); Mean Corpuscular Volume 101.8 fl (80-94); Nucleated Red Blood Cells % 0 %; Platelet Count 60 K/mm3 (142-424); Red Blood Count 3.93 M/mm3 (4.60-6.20); Red Cell Distribution Width-SD 48.9 fL; White Blood Count 5.8 K/mm3 (4.8-10.8)
[2025-01-04 14:22] LABS: Troponin I < 0.01 ng/ml (0.00-0.034)
[2025-01-04] MEDS: DEFINITY US ECHO CONTRAST 2ML INJ 2 MG IV (14:37)
[2025-01-04 14:40] LABS: Thyroid Stimulating Hormone 2.32 uIU/mL (0.465-4.68)
[2025-01-04 14:52] LABS: Hemoglobin A1C 6.2 % (4.0-6.0)
[2025-01-04] MEDS: IOPAMIDOL-370 (76%);100ML BOTTLE 90 ML IV (15:36)
[2025-01-04] MEDS: FUROSEMIDE 40MG/4ML VIAL 40 MG IV (15:41)
[2025-01-04 17:30] LABS: POC Glucose,Bedside 150 gm/dL (70-110)
[2025-01-04] MEDS: GABAPENTIN 800MG TABLET 800 MG PO ×2 (17:34→20:01)
--- NOTE | 2025-01-04 19:40 | PC.NURSE ---
radial band removed, no drainage noted, 4x4 gauze and tegaderm applied. VSS. patient denies chest pain/shortness of breath.
[2025-01-04] MEDS: BUSPIRONE HCL 5 MG TABLET PO (20:01)
[2025-01-04 20:16] LABS: POC Glucose,Bedside 155 gm/dL (70-110)
[2025-01-05] VITALS: BP 108/59; PULSE 48; PULSE 50; RESP 16; TEMP 36.6; O2SAT 94
[2025-01-05] MEDS: ZOLPIDEM TARTRATE 5 MG TABLET PO (00:27)
[2025-01-05 04:00] VITALS: BP 108/72; PULSE 60; PULSE 70; RESP 20; TEMP 36.8; O2SAT 94; BMI 44.9
[2025-01-05 06:21] LABS: Hematocrit 39.2 % (42.0-52.0); Hemoglobin 13.8 g/dL (14.1-18.0); Immature Granulocytes % 0.5 %; Mean Corpuscular HGB Conc 35.2 g/dL (31.8-35.4); Mean Corpuscular Hemoglobin 36.0 pg (27.0-31.2); Mean Corpuscular Volume 102.3 fl (80-94); Nucleated Red Blood Cells % 0 %; Platelet Count 64 K/mm3 (142-424); Red Blood Count 3.83 M/mm3 (4.60-6.20); Red Cell Distribution Width-SD 49.2 fL; White Blood Count 6.0 K/mm3 (4.8-10.8)
[2025-01-05 06:26] LABS: INR 1.12 (0.9-1.1); Prothrombin Time 12.3 seconds (10.1-12.5)
--- NOTE | 2025-01-05 06:30 | PC.NURSE ---
No events overnight. Patient radial dressing to right wrist is clean, dry, and intact. No drainage noted. Patient denies pain, but states that he is uncomfortable sleeping in hospital bed. Patient did sleep in recliner at bedside majority of the night. Patient able to ambulate independently to bathroom. Denies pain, or further needs. Call light within reach.
[2025-01-05 06:44] LABS: POC Glucose,Bedside 160 gm/dL (70-110)
[2025-01-05 06:48] LABS: Albumin Level 3.5 g/dl (3.5-5.0); Chloride 99 mmol/L (98-107); Potassium 3.9 mmoL/L (3.5-5.1); Sodium 135 mmol/L (136-145)
[2025-01-05 06:51] LABS: Alanine Aminotransferase 31 U/L (12-78); Albumin/Globulin Ratio 0.9 (1.1-1.8); Alkaline Phosphatase 101 U/L (38-126); Anion Gap 9.9 mEq/L (5-15); Aspartate Amino Transferase 44 U/L (17-59); Bilirubin,Total 1.1 mg/dl (0.2-1.3); Blood Urea Nitrogen 24 mg/dl (9-20); Calcium 8.9 mg/dl (8.4-10.2); Carbon Dioxide 30 mmol/L (22.0-30.0); Creatinine Clearance Estimated 55 mL/min (50-200); Creatinine,Serum 1.50 mg/dl (0.66-1.25); Estimated Glomerular Filt Rate 47 ml/min (>60); GFR (African American) 57 ML/MIN (>60); Globulin 3.7 g/dL (1.3-3.2); Glucose 160 mg/dl (74-100); Magnesium 1.7 mg/dl (1.6-2.3); Total Protein,Serum 7.2 g/dl (6.3-8.2)
--- NOTE | 2025-01-05 07:43 | HMH.PHAINT1 ---
Pharmacy Intervention Comments: MEDICATION RECONCILIATION COMPLETED ON PATIENT USING EXTERNAL FILL HISTORY FROM PHARMACY. -SHASHI GOMES, RICHAD
--- NOTE | 2025-01-05 07:49 | EXP.DC.SUM ---
General Admission date:: 01/04/25 Discharge date: 01/05/25 HPI HPI HPI: Mr. Shultz is a 64-year-old male who smokes 2 packs a day, has history of CAD, hypertension, COPD, sleep apnea, morbid obesity. Presented for outpatient visits with pulmonology and cardiology. On arrival to cardiology clinic, they were concerned that his dyspnea is an anginal equivalent. Requested direct admission for further workup of unstable angina/dyspnea with exertion. Planning for left heart cath. Patient denies nausea, vomiting, syncope. No known previous heart attacks. History complicated by diabetes. Takes metformin for his diet he had blood pressure well control on on valsartan, HCTZ. at bedside. Updated of plan Hospital Course Hospital Course Hospital Course: 64-year-old male who presented to cardiology clinic, having dyspnea with exertion. Concern for unstable angina/anginal equivalent. Discussed case document improvement specialist, request admission for further management of his suspected unstable angina. Patient was taken for left heart cath. Monitored overnight after heart cath. Stable to discharge home with medication adjustments. Problems addressed as follows: Crescendo angina/unstable angina CAD Hypertension HFmrEF - Case was discussed with cardiology who requested admission for unstable angina/anginal equivalent with shortness of breath on exertion. Patient has multiple risk factors for CAD and ACS. Decision was made to take him for left heart cath. Echo shows heart failure with mild reduction in EF at 40%. Insufficient TR jet to estimate RVSP. He was initiated on diuresis with Bumex 1 mg IV twice daily. Left heart cath did not show any flow-limiting lesions. No stents were placed. Cardiology assisted with care during admission. Lipitor 109 on admission. Recommend continuing the following medications for optimization of hypertension, overload, HFpEF therapy. Aspirin 81 mg daily Bumex 1 mg p.o. twice daily Carvedilol 12.5 mg p.o. twice daily Jardiance 10 mg daily Entresto 24/26 mg p.o. twice daily Spironolactone 12.5 mg daily Lipitor 40 mg p.o. nightly Tobacco use disorder: Complicates all aspects of his care. High risk for worsening COPD and CAD. Counseled on cessation. Nicotine patch 21 mg daily as needed during admission Diabetes: A1c well-controlled at 6.2. Continue metformin at 1000 mg daily. Kidney function stable, BUN 21, creatinine 1.3. Potassium 3.9. Depression: Continue buspirone 5 mg twice daily Neuropathy: Continue gabapentin 800 mg 4 times a day Insomnia: Continue zolpidem 5 mg nightly as needed Morbid obesity complicates all aspects of his care. Encourage weight loss Exam Data for Last 24 hours Vital signs and Labs for Last 24 Hours: Temp Pulse Resp BP Pulse Ox O2 Del Method 98.3 F 70 20 108/72 L 94 L Room Air 01/05/25 04:00 01/05/25 04:00 01/05/25 04:00 01/05/25 04:00 01/05/25 04:00 01/05/25 07:00 Laboratory Results - last 24 hr 01/04/25 13:43: WBC 5.8, RBC 3.93 L, Hgb 14.1, Hct 40.0 L, MCV 101.8 H, MCH 35.9 H, MCHC 35.3, RDW 13.1, Plt Count 60 L, MPV 11.0 H, Neut % (Auto) 58.9, Lymph % (Auto) 26.0, [place] % (Auto) 9.0, Eos % (Auto) 4.2, Baso % (Auto) 1.4, Neut # (Auto) 3.4, Lymph # (Auto) 1.5, [place] # (Auto) 0.5, Eos # (Auto) 0.2, Baso # (Auto) 0.1, Sodium 135 L, Potassium 3.9, Chloride 99, Carbon Dioxide 30, Anion Gap 9.9, BUN 21 H, Creatinine 1.30 H, Estimated Creat Clear 64, Estimated GFR 56 L, Est GFR ( Amer) 67, Glucose 122 H, Hemoglobin A1c 6.2 H, Calcium 9.2, Magnesium 1.7, Total Bilirubin 1.4 H, AST 44, ALT 30, Alkaline Phosphatase 114, Troponin I < 0.01, Total Protein 7.6, Albumin 3.7, Globulin 3.9 H, Albumin/Globulin Ratio 0.9 L, Triglycerides 118, Cholesterol 202 H, LDL Cholesterol Direct 109.47, VLDL Cholesterol 24, HDL Cholesterol 55, Cholesterol/HDL Ratio 3.7 H, TSH 2.32 01/04/25 16:31: POC Glucose 150 H 01/04/25 19:55: POC Glucose 155 H 01/05/25 05:57: WBC 6.0, RBC 3.83 L, Hgb 13.8 L, Hct 39.2 L, MCV 102.3 H, MCH 36.0 H, MCHC 35.2, RDW 13.2, Plt Count 64 L, MPV 11.0 H, Neut % (Auto) 59.9, Lymph % (Auto) 25.2, [place] % (Auto) 8.6, Eos % (Auto) 4.5, Baso % (Auto) 1.3, Neut # (Auto) 3.6, Lymph # (Auto) 1.5, [place] # (Auto) 0.5, Eos # (Auto) 0.3, Baso # (Auto) 0.1, PT 12.3, INR 1.12 H, Sodium 135 L, Potassium 3.9, Chloride 99, Carbon Dioxide 30, Anion Gap 9.9, BUN 24 H, Creatinine 1.50 H, Estimated Creat Clear 55, Estimated GFR 47 L, Est GFR ( Amer) 57 L, Glucose 160 H D, Calcium 8.9, Magnesium 1.7, Total Bilirubin 1.1, AST 44, ALT 31, Alkaline Phosphatase 101, Total Protein 7.2, Albumin 3.5, Globulin 3.7 H, Albumin/Globulin Ratio 0.9 L 01/05/25 06:36: POC Glucose 160 H I & O for Last 24 hours: Intake & Output 01/02/25 01/03/25 01/04/25 01/05/25 23:59 23:59 23:59 23:59 Intake Total 360 / 840 480 / 480 Output Total 400 / 400 250 / 250 Balance -40 / 440 230 / 230 Weight 150.649 kg 150.649 kg Constitutional Constitutional: no acute distress, morbidly obese and cooperative *Routine HEENT Exam Head: Present normocephalic and atraumatic ENT: Present mucous membranes moist *Routine Neck Exam Neck: Present supple, full ROM and normal carotid upstroke; Absent JVD, carotid bruit or lymphadenopathy *Routine Respiratory Exam Respiratory: Present CTA bilaterally, normal respiratory effort, able to speak in complete sentences and symmetric chest movement; Absent rhonchi or wheezes *Routine Cardiovascular Exam Cardiovascular: Present RRR, Normal S1 and Normal S2; Absent murmur or gallop *Routine Abdominal Exam Abdominal: Present soft and normoactive bowel sounds; Absent tenderness, distended or organomegaly *Routine Rectal Exam Patient deferred: visual exam *Routine Exam Patient deferred: penile exam *Routine Extremities Exam Extremities: Present full ROM, pulses intact and normal capillary refill; Absent cyanosis, clubbing or edema *Routine Skin Exam Skin: Present intact and warm; Absent erythema *Routine Neurological Exam Neurological: Present alert, oriented X3 and CN II-XII intact; Absent sensory deficit or motor deficit Routine Psychiatric Exam Psychiatric: Present normal affect Results Data Completed and Pending Labs on day of discharge: Labs from last 24 hours 01/05/25 01/05/25 01/04/25 06:36 05:57 19:55 WBC 6.0 RBC 3.83 L Hgb 13.8 L Hct 39.2 L MCV 102.3 H MCH 36.0 H MCHC 35.2 RDW 13.2 Plt Count 64 L MPV 11.0 H Neut % (Auto) 59.9 Lymph % (Auto) 25.2 [place] % (Auto) 8.6 Eos % (Auto) 4.5 Baso % (Auto) 1.3 Neut # (Auto) 3.6 Lymph # (Auto) 1.5 [place] # (Auto) 0.5 Eos # (Auto) 0.3 Baso # (Auto) 0.1 PT 12.3 INR 1.12 H Sodium 135 L Potassium 3.9 Chloride 99 Carbon Dioxide 30 Anion Gap 9.9 BUN 24 H Creatinine 1.50 H Estimated Creat Clear 55 Estimated GFR 47 L Est GFR ( Amer) 57 L Glucose 160 H D POC Glucose 160 H 155 H Hemoglobin A1c Calcium 8.9 Magnesium 1.7 Total Bilirubin 1.1 AST 44 ALT 31 Alkaline Phosphatase 101 Troponin I Total Protein 7.2 Albumin 3.5 Globulin 3.7 H Albumin/Globulin Ratio 0.9 L Triglycerides Cholesterol LDL Cholesterol Direct VLDL Cholesterol HDL Cholesterol Cholesterol/HDL Ratio TSH 01/04/25 01/04/25 16:31 13:43 WBC 5.8 RBC 3.93 L Hgb 14.1 Hct 40.0 L MCV 101.8 H MCH 35.9 H MCHC 35.3 RDW 13.1 Plt Count 60 L MPV 11.0 H Neut % (Auto) 58.9 Lymph % (Auto) 26.0 [place] % (Auto) 9.0 Eos % (Auto) 4.2 Baso % (Auto) 1.4 Neut # (Auto) 3.4 Lymph # (Auto) 1.5 [place] # (Auto) 0.5 Eos # (Auto) 0.2 Baso # (Auto) 0.1 PT INR Sodium 135 L Potassium 3.9 Chloride 99 Carbon Dioxide 30 Anion Gap 9.9 BUN 21 H Creatinine 1.30 H Estimated Creat Clear 64 Estimated GFR 56 L Est GFR ( Amer) 67 Glucose 122 H POC Glucose 150 H Hemoglobin A1c 6.2 H Calcium 9.2 Magnesium 1.7 Total Bilirubin 1.4 H AST 44 ALT 30 Alkaline Phosphatase 114 Troponin I < 0.01 Total Protein 7.6 Albumin 3.7 Globulin 3.9 H Albumin/Globulin Ratio 0.9 L Triglycerides 118 Cholesterol 202 H LDL Cholesterol Direct 109.47 VLDL Cholesterol 24 HDL Cholesterol 55 Cholesterol/HDL Ratio 3.7 H TSH 2.32 DS: Diagnosis Discharge Diagnosis (1) (HFpEF) heart failure with preserved ejection fraction: Status: Acute Code(s): I50.30 - Unspecified diastolic (congestive) heart failure Qualifiers: Heart failure chronicity: acute on chronic Qualified Code(s): I50.33 - Acute on chronic diastolic (congestive) heart failure (2) Crescendo angina: Status: Acute Code(s): I20.0 - Unstable angina (3) Tobacco abuse: Status: Acute Code(s): Z72.0 - Tobacco use (4) COPD (chronic obstructive pulmonary disease): Status: Acute Code(s): J44.9 - Chronic obstructive pulmonary disease, unspecified Qualifiers: COPD type: unspecified COPD Qualified Code(s): J44.9 - Chronic obstructive pulmonary disease, unspecified (5) Smoking greater than 30 pack years: Status: Acute Code(s): F17.210 - Nicotine dependence, cigarettes, uncomplicated (6) HLD (hyperlipidemia): Status: Acute Code(s): E78.5 - Hyperlipidemia, unspecified Qualifiers: Hyperlipidemia type: other hyperlipidemia Qualified Code(s): E78.49 - Other hyperlipidemia (7) Morbidly obese: Status: Chronic Code(s): E66.01 - Morbid (severe) obesity due to excess calories (8) Diabetes mellitus: Status: Chronic Code(s): E11.9 - Type 2 diabetes mellitus without complications Qualifiers: Diabetes mellitus complication status: without complication Diabetes mellitus fci insulin use: with buttermaker continuous churn use Diabetes mellitus type: type 2 Qualified Code(s): E11.9 - Type 2 diabetes mellitus without complications; Z79.4 - buttermaker continuous churn (current) use of insulin (9) CAD (coronary artery disease): Status: Chronic Code(s): I25.10 - Atherosclerotic heart disease of redding coronary artery without angina pectoris Qualifiers: Associated angina: without angina Coronary Disease-Associated Artery/Lesion type: redding artery [place] vs. transplanted heart: redding heart Qualified Code(s): I25.10 - Atherosclerotic heart disease of redding coronary artery without angina pectoris (10) ANANTH on CPAP: Status: Chronic Code(s): G47.33 - Obstructive sleep apnea (adult) (pediatric) (11) HTN (hypertension): Status: Chronic Code(s): I10 - Essential (primary) hypertension Qualifiers: Hypertension type: essential hypertension Qualified Code(s): I10 - Essential (primary) hypertension Meds Home Medications and Allergies Home Medications ?Medication ?Instructions ?Recorded ?Confirmed ?Type metformin 1,000 mg tablet 1,000 mg PO DAILY 04/14/23 01/04/25 History gabapentin 800 mg tablet 800 mg PO QID #120 tabs 05/03/23 01/04/25 Rx aspirin 81 mg tablet,delayed 81 mg PO DAILY #30 tabs 07/28/23 01/05/25 Rx release buspirone 5 mg tablet 5 mg PO BID 04/24/24 01/04/25 History zolpidem 5 mg tablet 5 mg PO HSP PRN Sleep 04/24/24 01/04/25 History albuterol sulfate 90 mcg/actuation 2 inh inhalation QID PRN shortness 09/11/24 01/04/25 Rx aerosol inhaler (Ventolin HFA) of breath or wheezing 90 days #8.5 grams budesonide-formoterol HFA 80 1 puff inhalation BID 01/04/25 01/04/25 History mcg-4.5 mcg/actuation aerosol inhaler bumetanide 1 mg tablet 1 mg PO BID #60 tabs 01/05/25 Rx carvedilol 12.5 mg tablet 12.5 mg PO BID 30 days #60 tabs 01/05/25 Rx empagliflozin 10 mg tablet 10 mg PO DAILY 30 days #30 tabs 01/05/25 Rx (Jardiance) sacubitril 24 mg-valsartan 26 mg 1 tab PO BID 30 days #60 tabs 01/05/25 Rx tablet (Entresto) spironolactone 25 mg tablet 12.5 mg (1/2 x 25 mg) PO DAILY 30 01/05/25 Rx days #15 tabs New Prescriptions to Start Prescriptions: bumetanide Kiran Poole carvedilol Kiran Poole empagliflozin [Jardiance] Kiran Poole sacubitril-valsartan [Entresto] Kiran Poole spironolactone Kiran Poole Allergies Allergy/AdvReac Type Severity Reaction Status Date / Time atorvastatin Allergy Intermediate Rash Verified 01/04/25 12:32 codeine AdvReac Rash Verified 01/04/25 11:12 Discharge Plan Disposition Patient Disposition: Home, Self-Care Condition: Fair Follow up Plan Follow up with: Gus Jorge MD [Staff Physician, Cardiology] - 01/11/25 11:00 am Keeley Vazquez APRN [Primary Care Provider, Medical] - 01/12/25 10:00 am Prescriptions/Medication Reconciliation: New sacubitril-valsartan [Entresto] 24-26 mg Tablet 1 tab PO BID 30 Days Qty: 60 0RF carvedilol 12.5 mg Tablet 12.5 mg PO BID 30 Days Qty: 60 0RF spironolactone 25 mg Tablet 12.5 mg PO DAILY 30 Days Qty: 15 0RF Jardiance 10 mg Tablet 10 mg PO DAILY 30 Days Qty: 30 0RF bumetanide 1 mg tablet 1 mg PO BID Qty: 60 0RF Continued metformin 1,000 mg tablet 1,000 mg PO DAILY buspirone 5 mg tablet 5 mg PO BID Patient Comments: TAKE ONE (1) TAB BY MOUTH TWO (2) TIMES PER DAY zolpidem 5 mg tablet 5 mg PO HSP PRN (Reason: Sleep) Patient Comments: TAKE 1 TABLET BY MOUTH EVERY DAY gabapentin 800 mg tablet 800 mg PO QID Qty: 120 5RF albuterol sulfate [Ventolin HFA] 90 mcg/actuation HFA aerosol inhaler 2 inh inhalation QID PRN (Reason: shortness of breath or wheezing) 90 Days Qty: 8.5 3RF budesonide-formoterol 80-4.5 mcg/actuation HFA aerosol inhaler 1 puff inhalation BID Patient Comments: INHALE ONE (1) PUFF BY MOUTH TWO TIMES DAILY aspirin 81 mg tablet,delayed release (DR/EC) 81 mg PO DAILY Qty: 30 2RF Discontinued valsartan 80 mg tablet 80 mg PO DAILY hydrochlorothiazide 12.5 mg tablet 12.5 mg PO DAILY Patient Comments: TAKE 1 TABLET BY MOUTH EVERY DAY Problem Reconciliation Problems Reviewed?: Yes Patient Discharge Instructions ACTIVITY: Continue current activity DIET: continue same diet Print Language: Nepali Providers Primary Care Provider: Keeley Vazquez Admit Provider: Kiran Poole Attending Provider: Kiran Poole
[2025-01-05 07:58] VITALS: BP 117/56; PULSE 50; RESP 16; TEMP 36.4; O2SAT 91
[2025-01-05 08:00] VITALS: PULSE 60
[2025-01-05] MEDS: ASPIRIN EC 81MG TABLET 81 MG PO (09:33)
[2025-01-05] MEDS: BUMETANIDE 1MG/4ML VIAL 1 MG IV (09:33)
[2025-01-05] MEDS: METFORMIN 500MG TABLET 1000 MG PO (09:35)
[2025-01-05] MEDS: SPIRONOLACTONE 25MG TABLET 12.5 MG PO (09:35)
[2025-01-05] MEDS: BUSPIRONE HCL 5 MG TABLET PO (09:40)
[2025-01-05] MEDS: GABAPENTIN 800MG TABLET 800 MG PO (09:40)
[2025-01-05] MEDS: CARVEDILOL 25MG TABLET 25 MG PO (09:49)
--- NOTE | 2025-01-05 10:46 | EXP.CARD.PN ---
Subjective Subjective Date: 01/05/25 Time: 08:30 Principal diagnosis: unstable angina Interval history: This is a 64-year-old white gentleman who presented to cardiology office yesterday and was subsequently admitted to the hospital for unstable angina and acute on chronic exacerbation of HFpEF. His EF is now further reduced to 40%. He has acute HFrEF. The patient has been diuresed with IV Bumex. He underwent left cardiac catheterization was found to have patent coronary artery disease. 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 Conklin with EP for PVC ablation. This morning he states he is feeling much better. He states he is getting discharged home today. He states his shortness of breath is still present with exertion but much better than it was. He denies any chest pain or pressure. He denies any fever, chills, nausea, vomiting or diarrhea. Exam Data for Last 24 hours Vital signs and Labs for Last 24 Hours: Temp Pulse Resp BP Pulse Ox O2 Del Method 97.6 F 50 L 16 117/56 L 91 L Room Air 01/05/25 07:58 01/05/25 07:58 01/05/25 07:58 01/05/25 07:58 01/05/25 07:58 01/05/25 07:58 Laboratory Results - last 24 hr 01/04/25 13:43: WBC 5.8, RBC 3.93 L, Hgb 14.1, Hct 40.0 L, MCV 101.8 H, MCH 35.9 H, MCHC 35.3, RDW 13.1, Plt Count 60 L, MPV 11.0 H, Neut % (Auto) 58.9, Lymph % (Auto) 26.0, [place] % (Auto) 9.0, Eos % (Auto) 4.2, Baso % (Auto) 1.4, Neut # (Auto) 3.4, Lymph # (Auto) 1.5, [place] # (Auto) 0.5, Eos # (Auto) 0.2, Baso # (Auto) 0.1, Sodium 135 L, Potassium 3.9, Chloride 99, Carbon Dioxide 30, Anion Gap 9.9, BUN 21 H, Creatinine 1.30 H, Estimated Creat Clear 64, Estimated GFR 56 L, Est GFR ( Amer) 67, Glucose 122 H, Hemoglobin A1c 6.2 H, Calcium 9.2, Magnesium 1.7, Total Bilirubin 1.4 H, AST 44, ALT 30, Alkaline Phosphatase 114, Troponin I < 0.01, Total Protein 7.6, Albumin 3.7, Globulin 3.9 H, Albumin/Globulin Ratio 0.9 L, Triglycerides 118, Cholesterol 202 H, LDL Cholesterol Direct 109.47, VLDL Cholesterol 24, HDL Cholesterol 55, Cholesterol/HDL Ratio 3.7 H, TSH 2.32 01/04/25 16:31: POC Glucose 150 H 01/04/25 19:55: POC Glucose 155 H 01/05/25 05:57: WBC 6.0, RBC 3.83 L, Hgb 13.8 L, Hct 39.2 L, MCV 102.3 H, MCH 36.0 H, MCHC 35.2, RDW 13.2, Plt Count 64 L, MPV 11.0 H, Neut % (Auto) 59.9, Lymph % (Auto) 25.2, [place] % (Auto) 8.6, Eos % (Auto) 4.5, Baso % (Auto) 1.3, Neut # (Auto) 3.6, Lymph # (Auto) 1.5, [place] # (Auto) 0.5, Eos # (Auto) 0.3, Baso # (Auto) 0.1, PT 12.3, INR 1.12 H, Sodium 135 L, Potassium 3.9, Chloride 99, Carbon Dioxide 30, Anion Gap 9.9, BUN 24 H, Creatinine 1.50 H, Estimated Creat Clear 55, Estimated GFR 47 L, Est GFR ( Amer) 57 L, Glucose 160 H D, Calcium 8.9, Magnesium 1.7, Total Bilirubin 1.1, AST 44, ALT 31, Alkaline Phosphatase 101, Total Protein 7.2, Albumin 3.5, Globulin 3.7 H, Albumin/Globulin Ratio 0.9 L 01/05/25 06:36: POC Glucose 160 H I & O for Last 24 hours: Intake & Output 01/02/25 01/03/25 01/04/25 01/05/25 23:59 23:59 23:59 23:59 Intake Total 360 / 840 1000 / 1000 Output Total 400 / 400 250 / 250 Balance -40 / 440 750 / 750 Weight 332 lb 2 oz 332 lb 1.987 oz Constitutional Constitutional: no acute distress and morbidly obese *Routine HEENT Exam Head: Present normocephalic and atraumatic ENT: Present mucous membranes moist *Routine Neck Exam Neck: Present supple, full ROM and normal carotid upstroke; Absent JVD, carotid bruit or lymphadenopathy *Routine Respiratory Exam Respiratory: Present CTA bilaterally, normal respiratory effort, able to speak in complete sentences and symmetric chest movement *Routine Cardiovascular Exam Cardiovascular: Present RRR, Normal S1 and Normal S2; Absent murmur or gallop *Routine Abdominal Exam Abdominal: Present soft and normoactive bowel sounds; Absent tenderness, distended or organomegaly *Routine Extremities Exam Extremities: Present full ROM, pulses intact and normal capillary refill; Absent cyanosis, clubbing or edema *Routine Skin Exam Skin: Present intact and warm; Absent erythema *Routine Neurological Exam Neurological: Present alert, oriented X3 and CN II-XII intact; Absent sensory deficit or motor deficit Routine Psychiatric Exam Psychiatric: Present normal affect Progress Note: A&P Assessment and plan (1) Acute HFrEF (heart failure with reduced ejection fraction): Status: Acute (2) CAD (coronary artery disease): Status: Chronic (3) HTN (hypertension): Status: Chronic (4) HLD (hyperlipidemia): Status: Acute (5) Tobacco abuse: Status: Acute (6) COPD (chronic obstructive pulmonary disease): Status: Acute (7) Morbidly obese: Status: Chronic (8) Diabetes mellitus: Status: Chronic (9) ANANTH on CPAP: Status: Chronic (10) SOB (shortness of breath): Status: Chronic (11) PVCs (premature ventricular contractions): Status: Acute Assessment and Plan Assessment and Plan for All Diagnoses:: Plan: 1. The patient was admitted to the hospital for crescendo angina/unstable angina. He underwent left cardiac catheterization yesterday and was found to have patent CAD. The patient will remain on aspirin 81 mg daily. CAD is stable. 2. The patient is having acute HFrEF. He has interval reduction in his ejection fraction. The patient has been diuresed with IV Bumex. Will convert him over to Bumex 1 mg p.o. twice daily at discharge for continued diuresis. 3. Continue spironolactone for diuresis. 4. His blood pressure is well-controlled. Stop HCTZ as he is on Bumex now. Will adjust the dose of his carvedilol as well. The patient has only been taking this once daily at bedtime. Will change carvedilol to 12.5 mg p.o. twice daily. 5. His LDL goal is less than 55. His LDL is 109. Will start him on Lipitor 40 mg p.o. nightly. 6. Tobacco cessation is highly advised and counseled. 7. Echocardiogram shows an ejection fraction of 40%. He does not need a LifeVest. As mentioned above he does now have HFrEF. 8. Start Jardiance 10 mg daily for HFrEF. 9. Stop valsartan and start Entresto 24/26 mg p.o. twice daily for HFrEF. 10. Outpatient referral for PVC ablation. 11. Outpatient cardiac MRI due to his HFrEF. 12. No further recommendations at this time from a cardiac standpoint. The patient can be discharged today from a cardiac standpoint with follow-up in cardiology clinic next week with Dr. Jorge. The patient will need to be discharged on the following cardiac medications: Aspirin 81 mg daily Bumex 1 mg p.o. twice daily Carvedilol 12.5 mg p.o. twice daily Jardiance 10 mg daily Entresto 24/26 mg p.o. twice daily Spironolactone 12.5 mg daily Lipitor 40 mg p.o. nightly Thank you for the opportunity to help participate in the care of this patient. All recommendations and orders are per Dr. Ramos.
[2025-01-05] MEDS: EMPAGLIFLOZIN 10MG TABLET 10 MG PO (12:03)
--- NOTE | 2025-01-08 10:54 | SW/DCPLANNER ---
Spoke with patient on the phone. Patient stated that he is doing good. Patient stated that he is aware of his upcoming appointments. Patient stated that he was able to get his new medicine picked up from the pharmacy. Patient stated that he has no concerns or questions at this time. Hima Guerra
== END 2025-01-05 12:16 | disposition home or self-care (01) ==
PROVIDERS: Internal Medicine; Admitting Provider Internal Medicine Adolescent Medicine; PCP Nurse Practitioner Family; Visit Provider Internal Medicine Adolescent Medicine
PROC: 4A023N7 Measurement of Cardiac Sampling and Pressure, Left Heart, Percutaneous Approach (ICD-10-PCS; CPT 93452; principal; 2025-01-04 13:50)
DX: I25.110 Atherosclerotic heart disease of native coronary artery with unstable angina pectoris (principal); I11.0 Hypertensive heart disease with heart failure; I50.33 Acute on chronic diastolic (congestive) heart failure; Z71.6 Tobacco abuse counseling; E11.40 Type 2 diabetes mellitus with diabetic neuropathy, unspecified; R06.02 Shortness of breath; Z79.4 Long term (current) use of insulin; E66.01 Morbid (severe) obesity due to excess calories; E78.49 Other hyperlipidemia; G47.33 Obstructive sleep apnea (adult) (pediatric); J44.9 Chronic obstructive pulmonary disease, unspecified; F17.210 Nicotine dependence, cigarettes, uncomplicated; I49.3 Ventricular premature depolarization; Z68.42 Body mass index [BMI] 45.0-49.9, adult; Z79.899 Other long term (current) drug therapy; Z79.84 Long term (current) use of oral hypoglycemic drugs; F32.A Depression, unspecified; G47.00 Insomnia, unspecified; Z79.51 Long term (current) use of inhaled steroids; Z88.6 Allergy status to analgesic agent; Z88.8 Allergy status to other drugs, medicaments and biological substances
CPT/HCPCS: 36415; 80053; 80061; 82962; 83036; 83735; 84443; 84484; 85025; 85610; 93306; 93458; 99152; C1725; C1760; C1769; G0378; J1938; J1939; J2003; J2250; Q9957; Q9967

== ENCOUNTER 2025-01-22 09:31 | Outpatient (CLI) | payer MEDICARE, SELFPAY ==
--- OUTSIDE RECORDS SUMMARY | 2025-01-22 09:34 | XMS_ITS | Encounter Summary ---
Author [place] [address] Care Team Providers Care Ground Nuclear Weapons Assembly Officer Name Role Phone Unavailable Primary Care Provider Unavailabl e Reason for Visit * Reason Onset Date Comments Appointment Needed 01/08/2025 ELEMENTARY PRINCIPAL appt ref b y Dr. Solitario Ramos Encounter Details Date Type Department Care Team (Late st Contact Info) Description 01/08/2025 Telephone [facility] [address] [facility] [address] [place] [address] Desiree Mason, Clerical Staff Appointment Needed (ELEMENTARY PRINCIPAL appt ref by Dr. Solitario Ramos) Social History Tobacco Use Types Packs/Day Years Used Date Smoking Tobacco: Every Day Cigarettes 2 51.8 Started: 1973 Passive Smoke Exposure: Current Smokeless Tobacco: Never Alcohol Use Standard Drinks/Week Comments Never 0 (1 standard drink = 0.6 oz pur e alcohol) AUDIT-C Answer Date Recorded Frequency of Alcohol Consumption Never 02/23/2019 Average Number of Drinks Not on file 019 Frequency of Binge Drinking Not on file 07/2018 PHQ-2 Answer Date Recorded PHQ-2 Score 0 02/23/2019 Sexually Active Control Partners Comments Yes Female Sex and Gender Information Value Date Recorded Sex Assigned at Not on file Legal Sex Male 2:53 PM EDT Gender Identity Not on file Sexual Orientation Not on file documented as of this encounter Functional Status * Is the person deaf or does he/she have serious difficulty hearing? Answer Date of Assessment Author No 04/26/2019 11:48 AM Alyse Laws RMA * Is the person blind or does he/she have serious difficulty seeing even when wearing glasses? Answer Date of Assessment Author No 04/26/2019 11:48 AM Alyse Laws RMA * Does this person have serious difficulty walking or climbing stairs? Answer Date of Assessment Author No 04/26/2019 11:48 AM Alyse Laws RMA * Does this person have difficulty dressing or bathing? Answer Date of Assessment Author No 04/26/2019 11:48 AM EST Alyse Felton, RMA * Because of a physical, mental or emotional condition, does this person have difficulty doing errands alone such as visiting a doctor's office or shopping? Answer Date of Assessment Author No 04/26/2019 11:48 AM Alyse Laws RMA documented as of this encounter Mental Status * Because of a physical, mental or emotional condition, does this person have serious difficulty concentrating, remembering or making decisions? Answer Entry Date Author No 04/26/2019 11:48 AM Alyse Laws, RMA documented in this encounter Miscellaneous Notes * Telephone Encounter - Bruna Judge MA - 01/08/2025 3:34 PM EDT Called and spoke with pt, appointment made * Telephone Encounter - Desiree Mason, Clerical Staff - 01/08/2025 3:10 PM EDT Patient is being referred by Dr. Solitario Ramos at [facility] for PVC ablation. MR/REF scanned into media. Please contact patient at [phone] Thank you documented in this encounter Plan of Treatment Upcoming Encounters Date Type Department Care Team (Late st Contact Info) Description 04/02/2025 2:30 PM EST Appointment [facility] [address] [place] [id number] 04/02/2025 2:45 PM EST Appointment [facility] [address] [place] [address] Esequiel Chapman MD [address] [place] [address] [place] [address] documented as of this encounter Goals Goal Patient Goal Type Associated Problems Recent Progress Patient-Stated? Author Blood Pressure < 140/90 Blood Pressure 122/59(2024 2:28 PM EST) Roshni Lane LPN BMI (Calculated) < 30 General 45.8(04/03/19 2:28 PM EST) Roshni Lane LPN Maintain a healthy diet, exercise regularly and maintain an ideal body weight General No Roshni Baez LPN Stay Tobacco Free Lifestyle Roshni Lane LPN HEMOGLOBIN A1C < 7.0 Result Component 7.3( 12:47 PM EST) No Roshni Baez LPN documented as of this encounter Visit Diagnoses Not on filedocumented in this encounter
--- OUTSIDE RECORDS SUMMARY | 2025-01-22 09:34 | XMS_ITS | Clinical Summary ---
Author Organization [facility] S Address [address] [place] [address] Phone Care Team Providers Care Auditor Appraiser Name Role Phone Unavailable Primary Care Provider Unavailabl e Allergies Active Allergy Reactions Criticality Noted Date Comments Codeine Other (See Comments) Medium 04/23/2016 Sweats, jittery, shaky Morphine Other (See Comments) Medium 04/23/2016 Severe hallucinations, sweating, rivero me up inside. Medications torsemide (DEMADEX) 20 mg Oral TabletIndication s:Essential hypertension Take 20 mg by mouth daily as needed. Active spironolactone (ALDACTONE) 50 mg Oral TabletIndication s:Essential hypertension Take 50 mg by mouth every other day. Active gabapentin (NEURONTIN) 800 mg Oral TabletIndication s:Type 2 diabetes mellitus with peripheral neuropathy (HCC) Take 1 Tab by mouth 3 times daily. 90 Tab 2 9 Active allopurinol (ZYLOPRIM) 100 mg Oral TabletIndication s:History of gout Take 1 Tab by mouth daily. 30 Tab 5 0 Active albuterol (PROVENTIL HFA;VENTOLIN HFA) 90 mcg/actuation Inhl HFA Aerosol Inhaler Inhale 2 Puffs into the lungs every 6 hours as needed for Wheezing. 1 Inhaler 5 0 Active carvediloL (COREG) 25 mg Oral Tablet TAKE 1 TABLET BY MOUTH TWICE A DAY 60 Tab 0 Active Additional Information Patient taking differently: 25 mg NIGHTLY, Reason: Advised by Physician, Informant: Self/Patient, Reported on 04/03/2024 rivaroxaban (XARELTO) 20 mg Oral Tablet Take 20 mg by mouth nightly. Active temazepam (RESTORIL) 15 mg Oral Capsule Take 15 mg by mouth nightly. Active aspirin 81 mg Oral Tablet, Delayed Release (E.C.) Take 81 mg by mouth daily. Active metFORMIN (GLUCOPHAGE) 1,000 mg Oral Tablet Take 1,000 mg by mouth 2 times daily. Active hydroCHLOROthiaz marla (MICROZIDE) 12.5 mg Oral Capsule Take 12.5 mg by mouth every morning. Active valsartan (DIOVAN) 80 mg Oral Tablet Take 80 mg by mouth every morning. Active fluticasone propion-salmeter oL (ADVAIR DISKUS) 250-50 mcg/dose Inhl Disk with Device Inhale 1 Puff into the lungs 2 times daily as needed. Active inclisiran sodium (LEQVIO SUBQ) Subcutaneous (Inject under the skin) Every 6 Months. Active potassium chloride 20 mEq Oral Tablet Sustained Release 1 tablet PO daily PRN Active Ketorolac Tromethamine 0.4 % Opht Drops Place 1 Drop into the left eye 3 times daily. Active prednisoLONE acetate (PRED FORTE) 1 % Opht Drops, Suspension Place 1 Drop into the left eye 3 times daily. Active moxifloxacin (VIGAMOX) 0.5 % Opht Drops Place 1 Drop into the left eye 3 times daily. Active Active Problems Patient Care Coordination No te Formatting of this note migh t be different from the original. Moe 02/23/2019 as expected [id number] TIO 02/23/2019 Problem Noted Date Diagnosed Date Non-alcoholic cirrhosis 10/12/2019 Overview (10/12/2019): Added automatically from request for surgery [id number] Esophageal varices without bleeding 10/12/2019 Overview (10/12/2019): Added automatically from request for surgery [id number] Difficult intubation Overview (11/03/2019): Very Hard to wake up Encounters Date Type Department Care Team Description 01/08/2025 Telephone [facility]g [address] [address] Desiree Mason, Clerical Staff Appointment Needed (PECAN MALLOW DIPPER appt ref by Dr. Solitario Ramos) from Last 3 Months Surgical History Surgery Date Site/Laterality Comments CARDIAC CATHETERIZATION CHOLECYSTECTOMY UPPER GASTROINTESTINAL ENDOSCOPY 04/23/2016 N/A ESOPHAGOGASTRODUODENOSCOPY with biopsy, COLONOSCOPY with polypectomy via hot snare and biopsies; Surgeon: Jigar Keller MD; Location: ED ENDOSCOPY; Service: Endoscopy UPPER GASTROINTESTINAL ENDOSCOPY 11/03/2019 N/A ESOPHAGOGASTRODUODENOSCOPY with biopsies AND COLONOSCOPY polypectomy and biopsies; Surgeon: Jigar Keller MD; Location: ED ENDOSCOPY; Service: Endoscopy HIP ARTHROPLASTY Right COLONOSCOPY CATARACT REMOVAL 06/24/2023 Eye/Left LEFT EYE CATARACT EXTRACTION WITH PHACOEMULSIFICATION AND INTRAOCULAR LENS; Surgeon: Delbert Clark MD; Location: [facility]; Service: Ophthalmology Medical devices from this surgery are in the Medical Devices section. CATARACT REMOVAL 07/08/2023 Eye/Right RIGHT EYE complex CATARACT EXTRACTION WITH PHACOEMULSIFICATION AND INTRAOCULAR LENS; Surgeon: Delbert Clark MD; Location: [facility]; Service: Ophthalmology Medical devices from this surgery are in the Medical Devices section. 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 Anxiety Anesthesia very hard to wak e Post-operative nausea and vomiting Gout Difficult intubation pt denies Family History Medical History Relation Name Comments Heart Disease Brother valve replacem ent High Blood Pressure Brother Cancer Father brain and bones Cancer Mother colon and liver Anesth Problems Neg Hx Relation Name Status Comments Brother Alive Father Mother Social History Tobacco Use Types Packs/Day Years Used Date Smoking Tobacco: Every Day Cigarettes 2 51.8 Started: 1973 Passive Smoke Exposure: Current Smokeless Tobacco: Never Tobacco Cessation:Ready to Q uit: Not Asked; Counseling Given: Not Answered Alcohol Use Standard Drinks/Week Comments Never 0 [...] on file Sexual Orientation Not on file Last Filed Vital Signs Vital Sign Reading Time Taken Comments Blood Pressure 122/59 04/03/2024 2:28 PM EST Pulse 67 04/03/2024 2:28 PM EST Temperature 36.5 C (97.7 F) 04/03/2024 2:28 PM EST Respiratory Rate 16 04/03/2024 2:28 PM EST Oxygen Saturation 97% 04/03/2024 2:28 PM EST Inhaled Oxygen Concentration - - Weight 152.7 kg (336 lb 11.2 oz) 04/03/2024 2:28 PM EST Height 182.9 cm (6') 04/03/2024 2:28 PM EST Body Mass Index 45.66 04/03/2024 2:28 PM EST Plan of Treatment Upcoming Encounters Date Type Department Care Team (Late st Contact Info) Description 04/02/2025 2:30 PM EST Appointment [facility] [address] [facility] [place] [address] 04/02/2025 2:45 PM EST Appointment [facility] [address] [place] [address] Esequiel Chapman MD [address] [place] [address] Health Maintenance Due Date Last Done Comments Wellness Exam Medicare 1963 Hepatitis A Vaccine (1 of 2 - Risk 2-dose series) 1980 Pneumococcal Vaccine 50+ (1 of 2 - PCV) 1980 DTaP/TDaP/Td (1 - Tdap) 03/05/2006 03/04/2006 Cologuard 2006 FIT 2006 Sigmoidoscopy 2006 Virtual Colonography 2006 Low Dose Lung Cancer Screening 06/17/2011 RSV or 60+ (1 - Ris k 50-74 years 1-dose series) 06/17/2011 Zoster (1 of 2) 06/17/2011 Hemoglobin A1c 10/25/2019 04/26/2019 Kidney Health: uACR 04/26/2020 04/26/2019 Lipids 04/26/2020 04/26/2019 Kidney Health: eGFR 09/13/2020 09/14/2019, 04/26/2019, 10/05/2016 Diabetic Eye Exam 02/23/2021 02/23/2019 Hepatitis B Vaccine (1 of 3 - Risk 3-dose series) 2021 COVID-19 Vaccine ( - 2024-2 6 season) 2024 Influenza Vaccine (#1) 2024 Colon Cancer Screening 11/02/2029 Colonoscopy 11/02/2029 11/03/2019, 04/23/2016 Hepatitis C Screening Completed 09/29/2023 , 03/12/2016 Meningococcal B Vaccine Aged Out No l onger eligible based on patient's age to complete this topic Goals Goal Patient Goal Type Associated Problems Recent Progress Patient-Stated? Author Blood Pressure < 140/90 Blood Pressure 122/59(2024 2:28 PM EST) No Roshni Baez LPN BMI (Calculated) < 30 General 45.8(04/03/19 2:28 PM EST) No Roshni Baez LPN Maintain a healthy diet, exercise regularly and maintain an ideal body weight General No Roshni Baez LPN Stay Tobacco Free Lifestyle No Roshni Baez LPN HEMOGLOBIN A1C < 7.0 Result Component 7.3( 12:47 PM EST) No Roshni Baez LPN Medical Devices Implanted Type Area Machine Brush Maker Device Identifier Shelf Expiration Date Model / Serial / Lot Rt Total Hip Replacement Lens Iol 1-Piece 21.5 Diopter Preloaded Acrylic Foldable Pc - [id number] Implanted:Qty: 1 on 06/24/2023 by Delbert Clark MD at [facility] Left: Eye [facility] [id number] 01/29/2026 CNA0T0.215 / [id number] / Lens Iol 1-Piece 21.5 Diopter Preloaded Acrylic Foldable Pc - [id number] Implanted:Qty: 1 on 07/08/2023 by Delbert Clark MD at [facility] Right: Eye [facility]G [id number] 01/29/2026 CNA0T0.215 / [id number] / Procedures Procedure Name Priority Date/Time Associated Diagnosis Comments ACUTE HEPATITIS PANEL Routine 09/29/2023 1:55 PM EDT Thrombocytopenia Abnormal results of liver function studies GMED EGD-COLONOSCOPY Routine 11/03/2019 12:15 PM EDT COMPREHENSIVE METABOLIC PANEL Callback 09/14/2019 2:45 PM EDT Hepatic cirrhosis, unspecified hepatic cirrhosis type, unspecified whether ascites present (HCC) Nonalcoholic steatohepatitis Esophageal varices without bleeding, unspecified esophageal varices type (HCC) Anasarca Sleepiness ALBUMIN/CREATININE RATIO, RANDOM URINE Routine 04/26/2019 12:59 PM EST Type 2 diabetes mellitus with peripheral neuropathy (HCC) Essential hypertension Peripheral edema LIPID SCREEN Routine 04/26/2019 12:47 PM EST Type 2 diabetes mellitus with peripheral neuropathy (HCC) HEMOGLOBIN A1C Routine 04/26/2019 12:47 PM EST Type 2 diabetes mellitus with peripheral neuropathy (HCC) from Last 3 Months or Most Recently Relevant to Health Maintenance Results * ACUTE HEPATITIS PANEL (09/29/2023 1:55 PM EDT) Hep Bs Ag Non-Reacti ve Non-Reacti ve 09/29/2023 6:33 PM EDT [facility] Hep B Core IgM Non-Reacti ve Non-Reacti ve 09/29/2023 6:33 PM EDT [facility] Hep A IgM Non-Reacti ve Non-Reacti ve 09/29/2023 6:33 PM EDT [facility] Hep C Ab Non-Reacti ve Non-Reacti ve 09/29/2023 6:33 PM EDT [facility] Blood VENOUS BLOOD / Unknown Venipuncture / Unknown 09/29/2023 1:55 PM EDT 09/29/2023 2:07 PM EDT Kira Heredia APRN CHEMISTRY ORDERABLES Final Result Performing Organization Address [facility] Co de Phone Number [facility] [address] [facility], [place] [address] * [facility] EGD-COLONOSCOPY (11/03/2019 12:15 PM EDT) 11/03/2019 12:1 5 PM EDT Impressions [facility] - 11/03/2019 2:09 PM EDT Plan: Follow up pathology results. Resume all usual medications Follow-up office visit in 2 months Diagnosis and management options discussed with the patient Continue holding Aspirin, Ibuprofen, Motrin, Advil, Aleve, [place], Plavix, Effiant and/or Ticlid for 7 more days; hold Coumadin and Pradaxa according to instructions discussed by your GI physician immediately after your procedure; Avoid strenuous exercise or heavy lifting for 5 days; Avoid straining when you move your bowels EGD 1 year for variceal surveillance. Start omeprazole 20mg po bid Continue coreg for primary prophylaxis of variceal bleeding This section is an excerpt of the full report. Jigar Keller MD GI PROCEDURE ORDERABLE S Final Result Performing Organization Address [facility] de Phone Number [facility] [address] [place] [address] * (ABNORMAL) COMPREHENSIVE METABOLIC PANEL (09/14/2019 2:45 PM EDT) Sodium 137 136 - 145 mmol/L 09/14/2019 4:03 PM EDT [facility] Potassium 4.0 3.5 - 5.0 mmol/L 09/14/2019 4:03 PM EDT [facility] Chloride 100 98 - 107 mmol/L 09/14/2019 4:03 PM EDT [facility] Total CO2 27 22 - 29 mmol/L 09/14/2019 4:03 PM EDT [facility] Anion Gap 10 7 - 16 mmol/L 09/14/2019 4:03 PM EDT [facility] Calcium 9.1 8.6 - 10.4 mg/dL 09/14/2019 4:03 PM EDT [facility] Glucose Lvl 211(H) 74 - 100 mg/dL 09/14/2019 4:03 PM EDT [facility] BUN 18 6 - 20 mg/dL 09/14/2019 4:03 PM EDT [facility] Creatinine 1.14 0.67 - 1.30 mg/dL 09/14/2019 4:03 PM EDT [facility] Albumin 4.0 3.5 - 5.2 gm/dL 09/14/2019 4:03 PM EDT [facility] Total Protein 7.5 6.4 - 8.3 gm/dL 09/14/2019 4:03 PM EDT [facility] Bili Total 0.6 0.1 - 1.4 mg/dL 09/14/2019 4:03 PM EDT [facility] ALT 30 <=41 U/L 09/14/2019 4:03 PM EDT [facility] AST 45(H) <=40 U/L 09/14/2019 4:03 PM EDT [facility] Alk Phos 104 40 - 129 U/L 09/14/2019 4:03 PM EDT [facility] GFR Afr Am 81 >=60 mL/min/1.7 3 m2 09/14/2019 4:03 PM EDT [facility] GFR Non Afr Am 70 >=60 mL/min/1.7 3 m2 09/14/2019 4:03 PM EDT [facility] Comment: This estimated GFR was calculated using CKD-EPI equation which is modified based on ethnicity for Non Americans and Americans. Both results are reported since it is not always possible to determine the patient's ethnicity. This equation should only be used for individuals 18 and older. It has not been validated for use with the elderly (>70 years), women, or in some racial or ethnic subgroups, such as Hispanics. The equation will be less accurate in people with differences in nutritional status or muscle mass. Blood VENOUS BLOOD / Unknown Venipuncture / Unknown 09/14/2019 2:45 PM EDT 09/14/2019 2:47 PM EDT Sundeep Lee APRN CHEMISTRY ORDERABLES Final Res ult Performing Organization Address City/[facility]/ZIP Co de Phone Number [facility], [address] , [place] [address] [facility] [address] [place] [id number] * MICROALBUMIN/CREATININE RATIO URINE (04/26/2019 12:59 PM EST) Urine Albumin 127.6 mg/L 04/26/2019 4:58 PM EST [facility] Urine Creatinine 457.1 mg/dL 04/26/2019 4:58 PM EST [facility] Ur Albumin/Creat Ratio 28 0 - 30 mg/g 04/26/2019 4:58 PM EST [facility] Urine 04/26/2019 12:5 9 PM EST 04/26/2019 12:59 PM EST Rachel Sims PA-C URINE ORDERABLES Final Resul t Performing Organization Address [facility] Co de Phone Number [facility] [address] [place] [address] , [place] [address] * (ABNORMAL) HEMOGLOBIN A1C (04/26/2019 12:47 PM EST) Hgb A1C 7.3(H) 4.2 - 5.6 % 04/26/2019 6:03 PM EST [facility] Est. Avg Glucose 163 mg/dL 04/26/2019 6:03 PM EST [facility] Blood Venipuncture / Unknown 04/26/2019 12:47 PM EST 04/26/2019 12:47 PM EST Narrative [facility] - 04/26/2019 6:03 PM EST REFERENCE RANGE: Normal: 4.0-5.6% Pre-diabetes: 5.7-6.4% Provisional diagnosis of diabetes: >6.4% Hgb F>10% and anything which shortens red cell survival, such as hemolytic anemia, or unstable hemoglobin variants such as HbSS, HbSC, or HbCC, will lower the HbA1c value associated with a given level of glycemic control. Rachel SALEEM-C CHEMISTRY ORDERABLES Final R esult [facility] [address], [place] [address] * (ABNORMAL) LIPID SCREEN (04/26/2019 12:47 PM EST) Cholesterol 195 <=200 mg/dL 04/26/2019 5:00 PM EST [facility] Comment: < 200 Desirable 200 - 239 Borderline High >= 240 High Triglyceride 157(H) <=150 mg/dL 04/26/2019 5:00 PM EST [facility] Comment: < 150 Normal 150 - 199 Borderline High 200 - 499 High >= 500 Very High HDL 37(L) >=40 mg/dL 04/26/2019 5:00 PM EST [facility] Comment: > 60 Optimal 40 - 60 Acceptable < 40 Low LDL Calculated 127(H) <=100 mg/dL 04/26/2019 5:00 PM EST [facility] Comment: < 100 Optimal 100 - 129 Near or above optimal 130 - 159 Borderline High 160 - 189 High >= 190 Very High Non-HDL-C Calculated 158(H) <=129 mg/dL 04/26/2019 5:00 PM EST [facility] Comment: <130 Desirable 130-159 Above Desirable 160-189 Borderline High 190-219 High >= 220 Very High Fasting Specimen? No None 020 5:00 PM EST [facility] Blood Venipuncture / Unknown 04/26/2019 12:47 PM EST 04/26/2019 12:47 PM EST Rachel SALEEM-C CHEMISTRY ORDERABLES Final R esult [facility] [address], [place] [address] from Last 3 Months or Most Recently Relevant to Health Maintenance Insurance [employer] MEDICARE ADVANTAGE MR [employer] MEDICARE ADVANTAGE MR
--- OUTSIDE RECORDS SUMMARY | 2025-01-22 09:35 | XMS_ITS | Data Portability ---
Author Organization [facility] & [place], [facility] Medicine and [facility] [place] Address [facility] [place] [address] Assessment No assessment recorded. 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 Active 2021 Hugh Melo MD [address] [place] [address],[address] [place] [address], [phone], [facility] - [facility] & [place] 2 10:27:54 Macrocytosis - no anemia 425933934 Active 2021 Hugh Melo MD [address] [place] [address],[address], [place], [phone], [place] - [facility] - [place] & [place] 2 10:28:06 Cirrhosis of liver 42347836 Active 2021 Hugh Melo MD [address] [place] [address],[address], [place], [phone], [place] - [facility] - [place] & [place] 2 10:28:13 Splenomegaly 05049612 Active 2021 Hugh Melo MD [address] [place] [address],[address], [place], [phone], [place] - [facility] & [place] 2 10:28:21 Problem Notes None recorded. Procedures Surgical History Date Name Laterality Status Provider Name and Address Organization Details Recorded Time cholecystectomy completed Lisa PORTER [facility] & [place] 01/09/2022 10:18:39 total replacement of right hip joint completed Lisa NICHOLAS [facility] & [place] 01/09/2022 10:19:10 Imaging Results None recorded. Procedure Notes None recorded. Medical Equipment None Reported. Allergies Allergen ID Allergen Name Allergen Category Reaction Reaction Severity Criticality Documentation Date Start Date Code Code System Note Provider Name and Address Organization Details Recorded Time 03748 codeine medicatio n Not available Not available Not available 01/09/2022 2670 RxNorm Lisa lam, [facility] [place] 10:17:37 Medications Name Sig Start Date Stop [...] and Address Organization Details Last Updated DateTime 182.88 cm 44.9 kg/m2 787979. 51 g 97.9 [degF] 94 % 94 % 74 /min 18 /min 126/58 mm[Hg] Lisa PORTER [facility] & [place] 10:17:02 Social History Question Answer Notes LastModified by Organizat ion Details LastModified Time Tobacco Smoking Status Current Every Day Smoker Lisa lam, [facility] & [place] 01/09/2022 10:19:28 How Much Tobacco Do You [...] Diagnosis SNOMED-CT Code Diagnosis ICD10 Code Diagnosis IMO Codes Diagnosis Note [id number] MD MICHELLE [facility] [address] [facility] [place] [address] 01/09/2022 09:43:05 01/09/2022 10:43:57 Secondary thrombocytopenia 288812318 D69.59 Most likely secondary to the patient's [...] health record. Macrocytos is - no anemia 320006373 D75.89 I suspect this is related to his history of cirrhosis. No significan t changes noted over the last 2 years. Cirrhosis of liver 007 K74.60 Splenomegaly 01770475 R1 6.1 Health Concerns Section Related Observation LastModified by Organization Detai ls LastModified Time None Recorded Concern Status LastModified by Organization Details LastModified Time None Recorded Advance Directives Directive None Recorded Payers Insurance Date Sequence Insurance Name Policy Number Policy Wild Covered Member ID Wild Member ID Guarantor Name 10/09/2023 1 [place]/ ADVANTAGE - HMO) [id number] Uday Shultz [id number] Uday Shultz 08/28/2019 1 [employer] [facility] Uday Shultz [id number] Uday Shultz 01/09/2022 1 [place] [id number] Uday Shultz [id number] Uday Shultz 08/28/2019 2 [place] Uday Shultz [id number] Uday Shultz 08/28/2019 2 [place] Uday Shultz [id number] Uday Shultz Notes Date Note Type Note Provider Name and Address Organization Details Recorded Time 01/09/2022 text/html CC: Dr. Theresa Jamil had the pleasure of seeing Mr. Uday Shultz at the [facility] on 01/09/2022.Mr. Shultz [...] returns for follow-up. Hugh Melo MD [address] [facility],[address], [place], [address], [facility] - NT - [place] & [place] 01/09/2022 13:51:58
== END 2025-01-22 23:59 | disposition home or self-care (01) ==
LOC: RAD 09:32
PROVIDERS: PCP Nurse Practitioner Family; Visit Provider Internal Medicine
DX: I25.10 Atherosclerotic heart disease of native coronary artery without angina pectoris (principal); I50.41 Acute combined systolic (congestive) and diastolic (congestive) heart failure; I42.9 Cardiomyopathy, unspecified

== ENCOUNTER 2025-02-07 10:14 | Outpatient (CLI) | payer MEDICARE, SELFPAY ==
--- NOTE | 2025-02-07 10:30 | MR_ITS ---
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 Software platform sequences were performed using the Siemens RegisterPatient MR B19 platform. A set of three-plane, low-resolution, large [id number] localizers were initially acquired. Then axial, coronal, sagittal TrueFISP, as well as axial HASTE images, were obtained. These were followed by gated TrueFISP breathold cinematic sequences obtained in the short axis with 8 mm slices and 2 mm gaps, 2-chamber (vertical long axis), 3-chamber, 4-chamber (horizontal long axis). A bolus of contrast was injected intravenously with first-pass sequences obtained in the short axis and four-chamber planes. After approximately 10 minutes, a TI slitter and rewinder machine operator sequence was performed to determine the optimal TI time. Using the optimized TI time, delayed contrast enhancement segmented inversion???recovery TurboFLASH sequences were obtained in the short axis, 2-chamber, 3-chamber, and 4-chamber projections. 2D-velocity phase mapping was performed. Functional parameters were calculated by offline analysis on an independent workstation ([employer] Platform, CVIForsythe). Contrast: ProHance??? (Gadoteridol) FINDINGS MORPHOLOGY AND FUNCTION Left ventricle: The left ventricle is normal in size. The indexed left ventricular end-diastolic volume (LVEDVi) is 83 ml/m2 (reference range 57-105 ml/m2 in males, 56-96 ml/m2 in females). Normal left ventricular systolic function is present. There is normal left ventricular wall thickness. There are no regional wall motion abnormalities noted. LVEF is calculated at 60.9% (reference range 57-77%). Right ventricle: The right ventricle is normal in size. The indexed right ventricular end-diastolic volume (RVEDVi) is 75 ml/m2 (reference range 61-121 ml/m2 in males, 48-112 ml/m2 in females). Normal right ventricular systolic function is present. RVEF is calculated at 53.8% (reference range 52-72% in males, 51-71% in females). Atria: The left atrium is mildly dilated. The maximum indexed left atrial volume is 40 ml/m2 (reference range 26-52 ml/m2 in males, 27-53 ml/m2 in females). The right atrium is moderately dilated. The maximum indexed right atrial volume is 45 ml/m2 (reference range 18-90 ml/m2). Aorta: The diameter of the aortic annulus is normal, measuring 30 mm (coronal view reference range 21-30 mm in males, 19-27 mm in females). The diameter of the aortic sinus is normal, measuring 42 mm (coronal view reference range 25-42 mm in males, 24-36 mm in females). The diameter of the sinotubular junction is normal, measuring 30 mm (coronal view reference range 18-32 mm in males, 18-28 mm in females). The diameters of the ascending aorta is mildly increased, measuring 38 mm. The diameter of the descending thoracic aorta is normal. Main pulmonary artery: The main pulmonary artery diameter is normal. Pericardium: The pericardial thickness is normal. The pericardial thickness measures 1.5 mm (normal < 4.0 mm). There is no pericardial effusion. VALVES The valvular morphologies in the visualized sequences appear normal. There is no significant valvular stenosis or regurgitation of the mitral, aortic, tricuspid, or pulmonic valve noted visually. Systolic anterior motion of the mitral valve is not visualized. Ratio of pulmonary to systemic flow, Qp:Qs ratio = 0.8 (normal < or = 1.2, hemodynamically significant shunt > 1.5), demonstrating no evidence of hemodynamically significant shunt. TISSUE CHARACTERIZATION Resting Perfusion: Normal myocardial blood flow at rest. No evidence of resting hypoperfusion. Myocardial Fibrosis and/or edema: Normal gadolinium kinetics are present. No evidence of late gadolinium enhancement is noted, consistent with absence of myocardial scarring, infarction, or necrosis. T2-weighted imaging demonstrates no evidence of myocardial edema or inflammation. OTHER No other significant findings are noted. However, this exam is focused on the cardiac structure and function. IMPRESSION Normal LV size with normal LV systolic function. LVEDVi= 83 ml/m2 and LVEF= 60.9%. Normal RV size with normal RV systolic function. RVEDVi= 75 ml/m2 and RVEF= 53.8%. Biatrial enlargement. No CMR evidence of myocardial scarring, infarction, or necrosis. No evidence of myocardial edema or active inflammation. Perfusion analysis demonstrates normal blood flow at rest with no evidence of resting hypoperfusion. Ratio of pulmonary to systemic flow, Qp:Qs ratio = 0.8 (normal < or = 1.2, hemodynamically significant shunt > 1.5), demonstrating no evidence of hemodynamically significant shunt. Mildly dilated ascending aorta (38 mm in diameter). Compared to recent TTE, this CMR demonstrates normal biventricular systolic function, which likely represents myocardial recovery in the setting of recent suspected myocarditis. This CMR demonstrates no evidence of active inflammation or myocarditis. No evidence of cardiomyopathy. COMPARISON None CRITICAL RESULT None COMMUNICATION As above. The findings of this cardiac MR were reviewed, reported, and signed by Solitario Ramos MD (Social Media Project Manager). Conclusion Electronically signed by : Deborah Ramos MD 03/02/2025 15:15:35
[2025-02-07 11:06] LABS: Blood Urea Nitrogen 12 mg/dl (9-20); Creatinine,Serum 1.10 mg/dl (0.66-1.25); Estimated Glomerular Filt Rate 68 ml/min (>60); GFR (African American) 82 ML/MIN (>60)
[2025-02-07] MEDS: GADOTERIDOL INJ 20ML SYRINGE 30 ML IV (12:21)
[2025-02-07] MEDS: 0.9 % SODIUM CHLORIDE 50 ML VIAL 10 ML IV (12:22)
== END 2025-02-07 23:59 | disposition home or self-care (01) ==
LOC: RAD 10:14
PROVIDERS: PCP Nurse Practitioner Family; Visit Provider Internal Medicine
DX: I77.810 Thoracic aortic ectasia (principal); I50.43 Acute on chronic combined systolic (congestive) and diastolic (congestive) heart failure; I25.10 Atherosclerotic heart disease of native coronary artery without angina pectoris; I42.9 Cardiomyopathy, unspecified
CPT/HCPCS: 36415; 75561; 82565; 84520; A9576